=== PATIENT | female | born 2000 | race Caucasian/White ===

== ENCOUNTER 2018-03-23 12:46 | Emergency (ER) | payer MEDICAID, SELFPAY ==
[2018-03-23 12:48] VITALS: BP 115/80; PULSE 92; RESP 15; TEMP 36.4; O2SAT 95; BMI 27.6
[2018-03-23] MEDS: Acetaminophen 500 MG Tablet 1000 MG PO (14:18)
[2018-03-23 14:30] LABS: Red Blood Cells-Urine 0 SEEN /hpf (0-5)
[2018-03-23 14:31] LABS: Color, Urine Yellow (Yellow); Glucose, Dipstick Normal (Normal); Ketone-Dipstick 50 mg/dl (Negative); Leukocyte Esterase-Dipstick 500 /ul (Negative); Nitrite-Dipstick Negative (Negative); Occult Blood-Urine Negative /ul (Negative); Protein-Dipstick Negative (Negative); Urine Bilirubin Dipstick Negative (Negative); Urine Clarity Sl. Cloudy (Clear); Urine Urobilinogen Normal (Normal)
[2018-03-23 14:37] LABS: Bacteria 1+ /hpf (None Seen); Mucous, Urine 1+ /hpf (<or=2+); Squamous Epithelial Cells - UA 0-5 SEEN /hpf (5-10); White Blood Cells 0-5 SEEN /hpf (0-5)
--- NOTE | 2018-03-23 15:11 | ED.DCSUM_ITS ---
- ER Visit Summary Date of Service: 03/23/18 Chief Complaint: Back pain History of Present Illness: The patient is a [address] Macedo at the [facility]. She is a at 30 weeks and 60 weeks of . She reports she has back pain that began yesterday. It is a sharp, aching pain that is 5 out of 10 worsened through 10 currently. Is worsened by movement or standing. Is relieved by sitting or laying down. She reports that both of her legs ache. States that this is worse in her thighs and her feet. She reports that if she stands for long period of time her legs go numb. She denies any numbness in her groin. No problems with her bowels or her bladder. No recent trauma. No fall, MVA, or change in activity. Patient reports she has had normal movement. She denies any vaginal discharge. She denies any dysuria. She denies contractions. No fever, chills, or abdominal pain. Physical Examination: Vitals: Stable. Afebrile. General: A&O x 3. NAD. Cardiovascular exam: Regular rate and rhythm, no murmur, rub or gallop. Respiratory exam: Clear to auscultation bilaterally. No wheezes or stridor. Abdominal exam: Soft, nontender, nondistended, normal bowel sounds. No peritoneal signs. Gravid uterus. Back: No vertebral tenderness. Negative straight leg bilaterally. 5/5 DF, PF, EHL bilaterally. Normal sensation to light touch throughout. Extremity: No clubbing, cyanosis, or edema. Test Results: UA shows leukocytes and 1+ bacteria. Emergency Department Course and Treatment: Patient had heart tones of 130. She was treated with Tylenol and has had significant relief and is resting comfortably. Treatment Plan: Patient was discussed with Elza Bridges at the [facility]. She does not want her placed on antibiotics at this time. Her urine was sent for culture. She will be discharged on Tylenol. Instructed to follow- up in 1-2 days not improving. If she is improving keep her appointment next week as previously scheduled. Return to the emergency department for any worsening symptoms. Disposition: To home in improved and stable condition. Impression: 1. Low back pain. 2. Third trimester . This note was generated with onefortyation software. It may contain incorrect words, spelling, and punctuation that were not noted in review of the chart prior to signing ED Disposition - Plan for ED Patient: Disposition: Home or Assisted Living Chief Complaint: Back Instructions: ED Sprain Strain Lumbar Referrals: Evelia Macedo CNM [Certified Nurse Solutions Delivery Consultant] - 1-2 Days if not improving
== END 2018-03-23 15:52 | disposition home or self-care (01) ==
LOC: ED 14:10
PROVIDERS: Emergency Provider Emergency Medicine
DX: O26.893 Other specified pregnancy related conditions, third trimester (principal); M54.5 Low back pain; M79.604 Pain in right leg; M79.605 Pain in left leg; Z3A.30 30 weeks gestation of pregnancy
CPT/HCPCS: 81001; 87086; 87088; 99283

== ENCOUNTER 2018-06-02 18:51 | Inpatient (IN) | payer MEDICAID, SELFPAY ==
[2018-06-02 18:54] VITALS: BMI 31.4
[2018-06-02] MEDS: Lactated Ringers 1,000 ML 50 ML IV (19:50)
[2018-06-02] MEDS: 0.9% Normal Saline 100 ML IV.SOLN. INTRA-UTER (20:10)
--- NOTE | 2018-06-02 20:14 | PCM.HP.OB ---
History Date of Admission: 06/02/18 Final ALBERTO: 05/26/18 Final ALBERTO Source: US <20 weeks Gestational age: 41 Weeks and 0 Days History of this : This is a 18 year-old, G 1/0 at 41 weeks gestational age here for IOL due to post EDC. pt denies VB, Cramping, LOF. Allergies No Known Allergies Allergy (Verified 06/02/18 19:22) Home Medications: Home Medications No122/Iron/Folic Acid [ Multi Tablet] 1 each PO DAILY 03/23/18 Smoking Status: Never smoker Alcohol: None Number of Fetus(es): 2 Heart Tracin mod lauri, + accels no decels. Cat 1 TOCO Analysis: irregular History Past Pregnancies: Past Pregnancies Delivery Date Name GA/Weeks Outcome Route Weight Gender Labor Length Anesthesia Delivery Location Provider FOB Labs: A+, GBS neg, HIV neg, HEP B neg, Rub imm, Syphilis negative Expected Infant Delivery Method: Spontaneous Vaginal Review of Systems Cardiovascular: Denies: Chest Pain Gastrointestinal: Denies: Abdominal Pain Physical Exam General: Alert, Oriented x3 Abdomen: Soft, Non Tender, Gravid Neurological: Cranial nerves II-XII grossly intact TRAFFIC AGENT: Normal external genitalia Estimated gestational size: Appropriate for gestational size Presentation: Cephalic Cervix Dilation (cm): 1.5 Station: -2 Effacement (%): 70 Assessment/Plan This is a 18 year-old, G 2/ @ 41 weeks gestational age here for IOL due to post edc 1) cytotec, [facility] 2) Epidural if requested 3) Monitor fhr/toco 4) Anticipate
[2018-06-02] MEDS: miSOPROStol 25 MCG TABLET PO (20:15)
[2018-06-02 20:19] LABS: Hematocrit 36.6 % (37-47); Hemoglobin 11.7 g/dl (12.0-15.0); Mean Corpuscular Hgb 28.1 pg (27.0-32.0); Mean Corpuscular Volume 87.8 fL (81-99); Mean Platelet Vol. 11.8 fl (6.2-12.0); Platelet Count 200 K/mm3 (150-450); RBC Distribution Width CV 13.6 % (11.6-14.6); Red Blood Count 4.17 M/mm3 (4.2-5.4); Scan Indicated on CBC? Y/N NO; White Blood Count 13.7 K/mm3 (4.4-11.0)
--- NOTE | 2018-06-02 20:19 | HP.PCM_ITS ---
History Date of Admission: 06/02/18 Final ALBERTO: 05/26/18 Final ALBERTO Source: US <20 weeks Gestational age: 41 Weeks and 0 Days History of this : This is a 18 year-old, G 1/0 at 41 weeks gestational age here for IOL due to post EDC. pt denies VB, Cramping, LOF. Allergies No Known Allergies Allergy (Verified 06/02/18 19:22) Home Medications: Home Medications No122/Iron/Folic Acid [ Multi Tablet] 1 each PO DAILY 03/23/18 Smoking Status: Never smoker Alcohol: None Number of Fetus(es): 2 Heart Tracin mod lauri, + accels no decels. Cat 1 TOCO Analysis: irregular History Past Pregnancies: Past Pregnancies Delivery Date Name GA/Weeks Outcome Route Weight Gender Labor Length Anesthesia Delivery Location Provider FOB Labs: A+, GBS neg, HIV neg, HEP B neg, Rub imm, Syphilis negative Expected Infant Delivery Method: Spontaneous Vaginal Review of Systems Cardiovascular: Denies: Chest Pain Gastrointestinal: Denies: Abdominal Pain Physical Exam General: Alert, Oriented x3 Abdomen: Soft, Non Tender, Gravid Neurological: Cranial nerves II-XII grossly intact HAND PACKER/PACKAGER: Normal external genitalia Estimated gestational size: Appropriate for gestational size Presentation: Cephalic Cervix Dilation (cm): 1.5 Station: -2 Effacement (%): 70 Assessment/Plan This is a 18 year-old, G 2/ @ 41 weeks gestational age here for IOL due to post edc 1) cytotec, Garcia 2) Epidural if requested 3) Monitor fhr/toco 4) Anticipate
[2018-06-03] MEDS: miSOPROStol 25 MCG TABLET PO ×2 (00:53→05:14)
--- NOTE | 2018-06-03 08:27 | PCM.PN.OB ---
Subjective: Doing well sitting on peanut ball in room. Feeling contractions but not too uncomfortable. Family at bedside. Objective: FHR 125, moderated variability, accels, no decels, Category 1 TOCO: every 2-3 minutes, mild to palpation, lasting 30-60 seconds Cervix:4/75/-2 per nursing exam at 0445 - Physical Exam Psych/Mental Status: Normal Affect, Appropriate Weight: 183 lb Body Mass Index (BMI) 31.4 Laboratory Tests Past 24 Hrs 06/02/18 06/02/18 19:45 19:45 WBC 13.7 H RBC 4.17 L Hgb 11.7 L Hct 36.6 L MCV 87.8 MCH 28.1 MCHC 32.0 RDW 13.6 RDW Differential 43.0 Plt Count 200 MPV 11.8 Blood Type A POSITIVE Antibody Screen NEGATIVE Medical Necessity - Tobacco Use Smoking Status: Never smoker Assessment/Plan A: postdates IOL Category 1 FHT P: 1) Continue with IOL, will start Pitocin at 0900. 2) eat breakfast this am and shower 3) Continue with current positional changes and up out of bed. May have epidural if requested. 4) collaborating physician at this time and updated on patient status.
[2018-06-03] MEDS: 0.9% Saline Lock 10 ML Syringe IV ×2 (08:58→19:50)
[2018-06-03] MEDS: Lactated Ringers 1,000 ML 50 ML IV ×3 (08:58→15:05)
[2018-06-03] MEDS: Oxytocin 30 units/NS 500 ml 30 UNITS/500 ML IV.SOLN IV (09:12)
[2018-06-03] MEDS: Nalbuphine 10 MG/ML Ampul IV (10:20)
[2018-06-03] MEDS: fentaNYL-bupivacaine (epidural) 100 ML BAG EPIDURAL ×2 (12:00→16:38)
--- NOTE | 2018-06-03 12:17 | PCM.PN.OB ---
Subjective: Comfortable with epidural. Family at bedside. Objective: FHT: 120, moderate variability, accels, Category 1 TOCO: every 2-3 minutes, lasting 50-60 seconds, palpate moderate Cervix: 5cm/80%/-2, midline. IBOW - Physical Exam Weight: 183 lb Body Mass Index (BMI) 31.4 Intake and Output for Last 24 Hours 06/01/18 06/02/18 06/03/18 23:59 23:59 23:59 Intake Total 1350 / 1350 Output Total 650 / 650 Balance 700 / 700 Laboratory Tests Past 24 Hrs 06/02/18 06/02/18 19:45 19:45 WBC 13.7 H RBC 4.17 L Hgb 11.7 L Hct 36.6 L MCV 87.8 MCH 28.1 MCHC 32.0 RDW 13.6 RDW Differential 43.0 Plt Count 200 MPV 11.8 Blood Type A POSITIVE Antibody Screen NEGATIVE Medical Necessity - Tobacco Use Smoking Status: Never smoker Assessment/Plan A:Postdates IOL, progressing Category 1 FHT P: 1) Labor progressing, Pitocin at 8mu's 2) Epidural for pain management. Positional changes. 3) Continue with IOL.
--- NOTE | 2018-06-03 17:45 | CASEMGMT ---
Social Work Labor and Delivery Unit Responded to OB-ERT. Patient/mother of baby (MOB) taken to surgical room for possible Caesarian section. Present in room was father of baby (FOB) Fletcher and MOB's mother. FOB accompanied to section room by nursing staff. This telegraphic typewriter installer provided emotional support to MOB's mother, answered questions and provided updates as able. FOB's mother and sister also in waiting room. MOB's mother tearful and anxious during time that MOB back in section room, voicing how hard it is not to be with MOB. Decision made to have MOB back to labor room, so MOB's mom back to MOB's room. -CARLI Nails, LICENSED OCCUPATIONAL THERAPY ASSISTANT
[2018-06-03] MEDS: Oxytocin 30 units/NS 500 ml 30 UNITS/500 ML IV.SOLN 334 UNITS IV (18:00)
[2018-06-03] MEDS: Oxytocin 30 units/NS 500 ml 30 UNITS/500 ML IV.SOLN 167 UNITS IV (18:30)
--- NOTE | 2018-06-03 19:15 | PCM.PN.OB ---
Subjective: Progressed to complete, comfortable with epidural. Meconium stained fluid, pediatiricna and respiratory present for delivery. of viable male infant over 2nd degree perineal laceration. APGARS 8,9. Infant delivered and placed on maternal abdomen, stimulated and strong cry. Weight pending. Pitocin started for active 3rd stage management. Placenta delivered with maternal effort via mitchell, intact 3 vessel cord. Perineum inspected and revealed 2nd degree perineal laceration repaired under epidural analgesia and 3.0 vicryl. Periurethral laceration repaired with 3.0 vicryl. Fundus firm, hemostasis achieved. EBL 350ml. Mom and baby stable, family bonding well. Planning to breastfeed. notified of delivery. - Physical Exam Weight: 183 lb Body Mass Index (BMI) 31.4 Intake and Output for Last 24 Hours 06/01/18 06/02/18 06/03/18 23:59 23:59 23:59 Intake Total 3825 / 3825 Output Total 1050 / 1050 Balance 2775 / 2775 Laboratory Tests Past 24 Hrs 06/02/18 06/02/18 19:45 19:45 WBC 13.7 H RBC 4.17 L Hgb 11.7 L Hct 36.6 L MCV 87.8 MCH 28.1 MCHC 32.0 RDW 13.6 RDW Differential 43.0 Plt Count 200 MPV 11.8 Blood Type A POSITIVE Antibody Screen NEGATIVE Medical Necessity - Tobacco Use Smoking Status: Never smoker
--- NOTE | 2018-06-03 19:22 | PN.OBGYN_ITS ---
Subjective: Progressed to complete, comfortable with epidural. Meconium stained fluid, pediatiricna and respiratory present for delivery. of viable male infant over 2nd degree perineal laceration. APGARS 8,9. Infant delivered and placed on maternal abdomen, stimulated and strong cry. Weight pending. Pitocin started for active 3rd stage management. Placenta delivered with maternal effort via mitchell, intact 3 vessel cord. Perineum inspected and revealed 2nd degree perineal laceration repaired under epidural analgesia and 3.0 vicryl. Periurethral lacer ation repaired with 3.0 vicryl. Fundus firm, hemostasis achieved. EBL 350ml. Mom and baby stable, family bonding well. Planning to breastfeed. notified of delivery. - Physical Exam Weight: 183 lb Body Mass Index (BMI) 31.4 Intake and Output for Last 24 Hours 06/01/18 06/02/18 06/03/18 23:59 23:59 23:59 Intake Total 3825 / 3825 Output Total 1050 / 1050 Balance 2775 / 2775 Laboratory Tests Past 24 Hrs 06/02/18 06/02/18 19:45 19:45 WBC 13.7 H RBC 4.17 L Hgb 11.7 L Hct 36.6 L MCV 87.8 MCH 28.1 MCHC 32.0 RDW 13.6 RDW Differential 43.0 Plt Count 200 MPV 11.8 Blood Type A POSITIVE Antibody Screen NEGATIVE Medical Necessity - Tobacco Use Smoking Status: Never smoker
--- NOTE | 2018-06-03 19:28 | PCM.OB.VAG ---
- Problem List (1) (normal spontaneous vaginal delivery) Status: Acute (2) Second degree perineal laceration during delivery Status: Acute Vaginal Delivery Maternal Presentation: Medically Indicated Induction Method of Induction: Pitocin, Garcia Bulb, Cytotec Medical Reason for Induction: - - Postdates at 41 weeks Amniotic Membrane Rupture Type: Spontaneous Amniotic Fluid Description: Lightly stained meconium Final ALBERTO: 05/26/18 Gestational age: 41 Weeks and 1 Days Date of Procedure: 06/03/18 Pre-Operative Diagnosis: Induction of labor Post-Operative Diagnosis: Surgery/ Procedure Performed: Spontaneous Vaginal Delivery Type of Anesthesia: Epidural Description of Procedure: degree perineal laceration. APGARS 8,9. Infant delivered and placed on maternal abdomen, stimulated and strong cry. Weight pending. Pitocin started for active 3rd stage management. Placenta delivered with maternal effort via mitchell, intact 3 vessel cord. Perineum inspected and revealed 2nd degree perineal laceration repaired under epidural analgesia and 3.0 vicryl. Periurethral laceration repaired with 3.0 vicryl. Fundus firm, hemostasis achieved. EBL 350ml. Mom and baby stable, family bonding well. Planning to breastfeed. notified of delivery. Presentation: Vertex Placental Delivery Description: Spontaneous Placenta Disposition: [facility] Cord Vessel Description: 3 Vessels Cord Entanglement: None Estimated Blood Loss: 350ml Infant A gender: Male (1 minute): 8 (5 minute): 9 Episiotomy Description: None Laceration: Periurethral Extnsion/lac, Perineal Extension/lac, 2nd degree Medications given after delivery: IV Pitocin
[2018-06-03] MEDS: Acetaminophen 500 MG Tablet 1000 MG PO (20:48)
[2018-06-04 00:10] VITALS: BP 108/50; PULSE 74; RESP 17; TEMP 37.1
[2018-06-04 03:20] VITALS: BP 104/50; PULSE 72; RESP 16; TEMP 36.9
[2018-06-04] MEDS: Ibuprofen 600 MG Tablet PO ×3 (03:45→18:28)
[2018-06-04 08:30] VITALS: BP 116/52; PULSE 78; RESP 18; TEMP 36.6
[2018-06-04] MEDS: Senna/Docusate Sodium 1 Tablet PO (09:53)
--- NOTE | 2018-06-04 10:31 | PCM.PN.OB ---
Patient Problems: Active and Suspected Problems (normal spontaneous vaginal delivery) (Acute) Second degree perineal laceration during delivery (Acute) Subjective: No complaints - Physical Exam General: Alert, Oriented x3 Abdomen: Soft, Non Tender, Non-Distended - ff mid & below umb Extremities: No Calf Tenderness Vital Signs Temp Pulse Resp BP 97.9 F 78 18 116/52 L 06/04/18 08:30 06/04/18 08:30 06/04/18 08:30 06/04/18 08:30 Oxygen Delivery Method Room Air Weight: 183 lb Body Mass Index (BMI) 31.4 Intake and Output for Last 24 Hours 06/02/18 06/03/18 06/04/18 23:59 23:59 23:59 Intake Total 3825 / 3825 Output Total 1050 / 1050 1160 / 1160 Balance 2775 / 2775 -1160 / -1160 Medical Necessity - Tobacco Use Smoking Status: Never smoker Assessment/Plan All Active Problems (normal spontaneous vaginal delivery) (Acute) Second degree perineal laceration during delivery (Acute) PPD#1 Routine care
[2018-06-04 13:00] VITALS: BP 117/53; PULSE 84; RESP 18; TEMP 37
[2018-06-04 16:00] VITALS: BP 107/50; PULSE 104; RESP 18; TEMP 37
[2018-06-04 20:15] VITALS: BP 122/54; PULSE 81; RESP 16; TEMP 37.3; O2SAT 96
[2018-06-05 02:15] VITALS: BP 100/40; PULSE 78; RESP 16; TEMP 37.4; O2SAT 98
--- NOTE | 2018-06-05 08:47 | DCINST_ITS ---
Discharge Diet: No Restrictions Discharge Activity: Return to Normal Activity, May not drive while taking narcotic pain medications., May Shower May resume sexual activity in: 4-6 weeks Additional Activity Instructions:: Nothing in the vagina for 4-6 weeks. You may return to work/school in 6 weeks. Call your doctor if your incision/area has: Continuous Slow Oozing, Sudden Increased Bleeding, Increased Pain/ Swelling, Increased Redness, Foul Smelling Discharge Call your doctor if you observe: Fever of 101 or Higher, Inability to urinate, Inability to have a bowel movement, Using more than one pad per hour Additional Instructions: If you experience any of the following, contact your healthcare provider. * Bleeding that soaks a pad every hour for 2 hours * Fever 100.4 or higher * Unrelieved incision or abdominal pain * Swelling, redness, discharge or bleeding from your incision or episiotomy site * Your incision begins to separate * Problems urinating (including inability to urinate or burning while urinating). * Visual changes * Severe headache * Flu-like symptoms * Pain or redness in one of both of your breasts * Pain, warmth, tenderness or swelling in your legs, especially the calf area * Frequent nausea and vomiting * Symptoms of depression or anxiety If you experience any of the following, call 911 or go to the nearest Emergency Room. * Chest pain * Problems breathing * Seizure activity * Partial or complete paralysis of a body part, slurred speech, weakness or drooping of the face, or a sudden inability to walk or hold your balance Allergies/Adverse Reactions: Allergies No Known Allergies Allergy (Verified 06/02/18 19:22) Medications to take at Discharge No122/Iron/Folic Acid [ Multi Tablet] 1 each PO DAILY 03/23/18 Please Follow Up With: Evelia Macedo CNM When: Call to make an appointment with your provider in 2 and 6 weeks. If you had elevated Blood Pressure or 4th degree laceration you will need to be seen in 1 week. Primary Care Physician: Care Physician,No Primary [Primary Care Provider] - Test Results: Test results from this visit will be discussed in further detail at your follow- up appointment, if applicable. Proposed Discharge Date: 06/05/18
--- NOTE | 2018-06-05 08:47 | PCM.PN.OB ---
Patient Problems: Active and Suspected Problems (normal spontaneous vaginal delivery) (Acute) Second degree perineal laceration during delivery (Acute) Subjective: Patient laying in bed denying issues at this time. Notes occasional leaking of urine when she bladder is overfull and when she does not go to the bathroom in a timely fashion. Denies WADE, scotoma or dizziness. Denies any issues with urination or ambulation. Patient desires discharge to home today. Objective: VSS, Afebrile Nipples without cracks or blisters, breasts filling Abdomen NT x 4 quadrants, FF midline 2FB below umbilicus +2/4 reflexes in LE, negative calf tenderness to palpation BL, no edema noted scant rubra lochia, perineum well-approximated - Physical Exam General: Alert, Oriented x3, Cooperative HEENT: Atraumatic, Normocephalic Lungs: Normal air movement Cardiovascular: Regular rate, Regular Rhythm, No murmurs Abdomen: Soft, Non Tender Extremities: No edema, Capillary Refill Less than 3 Seconds Skin: No rashes, No breakdown Musculoskeletal: No Tenderness to Palpation of Joints or Extremities Neurological: Cranial nerves II-XII grossly intact Psych/Mental Status: Normal Affect, Appropriate Vital Signs Temp Pulse Resp BP Pulse Ox 99.3 F H 78 16 100/40 L 98 06/05/18 02:15 06/05/18 02:15 06/05/18 02:15 06/05/18 02:15 06/05/18 02:15 Oxygen Delivery Method Room Air Weight: 183 lb Body Mass Index (BMI) 31.4 Intake and Output for Last 24 Hours 06/03/18 06/04/18 06/05/18 23:59 23:59 23:59 Intake Total 3825 / 3825 Output Total 1050 / 1050 1160 / 1160 Balance 2775 / 2775 -1160 / -1160 Medical Necessity - Tobacco Use Smoking Status: Never smoker Assessment/Plan All Active Problems (normal spontaneous vaginal delivery) (Acute) Second degree perineal laceration during delivery (Acute) 18 y/o now, s/p , PPD #2, Normal PP Course P: 1) Discharge patient to home pending discharge 2) Anticipatory discharge teaching done 3) RTC in 2 and 6 weeks for PP visit at [facility] Elza HOWARD
[2018-06-05 10:00] VITALS: BP 108/60; PULSE 70; RESP 18; TEMP 37.3
[2018-06-05 13:00] VITALS: BP 136/48; PULSE 100; RESP 16; TEMP 36.3
--- NOTE | 2018-06-05 13:00 | CASEMGMT ---
Social Work Brief Assessment - Labor and Delivery Unit Refer documentation below for further details. Date of Referral/Notification: 06-03-18 Referred By: Social Work identification Reason for Referral: first time parents, assess for resource needs. Date of Intervention: 06-05-18 Time of Intervention: 1300 Informant: Medical record and mother of baby (MOB) Saira Evans History: MOB is a 18-year-old single female, G1, P0 to 1 after delivering baby boy Herb Hernandez this admission. Baby born weighing 8 pounds 13 ounces, ?s 8 and 9 at 1 and 5 minutes of life. Father of baby (FOB) is Azael Hernandez, age 19, involved with MOB for the last 2 years. 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 MOB reports to have needed baby supplies for Herb, including car seat, bassinet, clothing, diapers, wipes, bottles, and can get formula. MOB reports to have transportation. MOB reports to have good support from FOB, MOB?s mother, and FOB?s family. MOB denies any mental health history herself. MOB?s father with history of alcohol abuse, a grandmother with possible bipolar disorder, and the MOB?s mother had depression, anxiety, and depression. MOB denies any substance use or abuse history and is a nonsmoker of tobacco. MOB had negative drug screen on 10-20-17 when starting care around 7 weeks gestation. Assessment: Initially met with MOB and FOB together and then alone with MOB. Privately MOB denies any form of abuse in relationship with FOB, reports to feel safe and that FOB is supportive. FOB was holding the baby during time in the room, appearing supportive to MOB and attentive to baby. MOB attentive to baby when FOB left. MOB pleasant, talkative, held good eye contact, mood and affect appropriate. MOB reports to feel happy, reports to feel connected to the baby, and reports agreement with a [facility] referral. MOB denies any needs for home going, and reports will have help from FOB and then from MOB?s mother and even FOB?s mother if needed. MOB reports FOB?s family is larger and very supportive and loving, which is a new experience for MOB who has a small family. MOB initially do not publish status at the hospital as has had some drama with MOB?s grandmother, who MOB describes as not a nice person and who possibly has bipolar due to many mood swings and just talking meanly to others. Plan: MOB and baby to home with support from JOSÉ MANUEL, [facility] resource packet given, depression packet given, and MOB verbally agrees to a [facility] referral. No further needs requested or indicated. -REINALDO Nails, PLASTIC CABLEMAKING MACHINE OPERATOR
--- NOTE | 2018-06-15 12:17 | NURSING ---
[id number] Follow up phone call made and left a VM due to not answering. Marianna
--- NOTE | 2018-06-16 10:21 | CASEMGMT ---
Addendum entered and electronically signed by Nuzhat Jiménez 06/16/18 16:39: Reviewed and approve SALESPERSON [employer] student sports management internship documentation below. -CARLI Nails, GOLF BALL WINDER Original Note: Social Work Labor and Delivery [facility] referral submitted for parents and per their verbal consent through the secured [facility] website. No other services indicated or needed at this time. -Margarita Ash, SALESPERSON NEW CARS Student Floating Operator.
== END 2018-06-05 13:55 | disposition home or self-care (01) | DRG 560 ==
PROVIDERS: Obstetrics & Gynecology; Admitting Provider Obstetrics & Gynecology; Referring Provider Obstetrics & Gynecology; Visit Provider Obstetrics & Gynecology
DX: O48.0 Post-term pregnancy (principal); Z3A.41 41 weeks gestation of pregnancy; Z37.0 Single live birth; O70.1 Second degree perineal laceration during delivery; O77.0 Labor and delivery complicated by meconium in amniotic fluid
CPT/HCPCS: 59025; 59050; 85027; 86850; 86900; 99218; J7120; A4216; G0378

== ENCOUNTER 2019-02-02 20:19 | Emergency (ER) | payer MEDICAID, SELFPAY ==
[2019-02-02 20:19] VITALS: BP 117/65; PULSE 54; RESP 16; TEMP 36.6; O2SAT 100; BMI 24.9
--- NOTE | 2019-02-02 20:42 | EKG12_ITS ---
Test Reason : BACK PAIN Blood Pressure : / mmHG Vent. Rate : 050 BPM Atrial Rate : 050 BPM P-R Int : 146 ms QRS Dur : 086 ms QT Int : 404 ms P-R-T Axes : 061 067 049 degrees QTc Int : 368 ms Sinus bradycardia with sinus arrhythmia Otherwise normal ECG Confirmed by ERON STEPHENS, RADHA ([id number]), editor managing newspaper ALMITA WU ([id number]) on 02/05/2019 1:50:50 PM Referred By: IRAIDA Confirmed By:AASHISH LITTLEJOHN MD
--- NOTE | 2019-02-02 20:42 | CT_ITS ---
STUDY: CT BRAIN WITHOUT CONTRAST REASON FOR EXAM: Female, 18 years old. BILATERAL EXTREMITY NUMBNESS AND WEAKNESS RADIATION DOSAGE (If Supplied By Facility): CTDIvol = ( 44.99 ) mGy, DLP = ( 745.49 ) mGycm TECHNIQUE: Transaxial CT imaging of the brain was performed without administration of intravenous contrast material. Individualized dose optimization techniques were used for this CT. COMPARISON: No relevant priors. FINDINGS: Normal soft tissue structures. Normal calvarium. Normal size ventricles and extra-axial spaces for the patient's age. Normal white matter tracts of the cerebral hemispheres. Normal basal ganglia and thalami. Normal brainstem. Normal cerebellum. There is no intracranial hemorrhage. There are no findings of an acute ischemic infarction. Normal visualized paranasal sinuses. CT/Brain/Head without Contrast IMPRESSION: Normal unenhanced CT scan of the brain. Electronically Signed: Felix Carolina MD at 21:23 EDT , Service support ,
--- NOTE | 2019-02-02 20:42 | RAD_ITS ---
STUDY: X-RAY CHEST REASON FOR EXAM: Female, 18 years old. Neck and chest pain. TECHNIQUE: Frontal and lateral views of the chest. COMPARISON: None. FINDINGS: The lungs are clear and expanded. There is no demonstrated pleural abnormality. Normal size heart. Normal mediastinum and abril. Normal visualized pulmonary arteries. Normal visualized aortic arch and descending thoracic aorta. Normal visualized thoracic spine. Normal visualized ribs, clavicles, and shoulders. There is no demonstrated abnormality of the visualized soft tissue structures of the upper abdomen. RAD/Chest PA and Lateral IMPRESSION: Normal x-ray examination of the chest. Electronically Signed: Felix Carolina MD at 21:24 EDT , Service support ,
--- NOTE | 2019-02-02 20:43 | RAD_ITS ---
STUDY: X-RAY - CERVICAL SPINE REASON FOR EXAM: Female, 18 years old. Neck and chest pain. TECHNIQUE: 3 view(s) of the cervical spine were obtained. COMPARISON: None FINDINGS: Normal anterior atlantoaxial articulation. Normal odontoid process. Normal cervical lordosis. Normal vertebral bodies and endplates. Normal disc space heights. The soft tissue structures are unremarkable. There is no demonstrated fracture of the cervical spine. RAD/Cerv Spine 2 or 3 Views IMPRESSION: Normal x-ray examination of the visualized cervical spine. Electronically Signed: Felix Carolina MD at 21:25 EDT , Service support ,
--- NOTE | 2019-02-02 20:43 | ED.DCSUM_ITS ---
History of Present Illness Chief Complaint: Back Informant: Patient Onset: Hours - several Context: Sudden Onset - while standing at work Timing: Continuous Quality: pain and numb on inside Location: throughout all aspects of both lower extremities Current Severity: Mild Maximum Severity: Severe Worsened by: standing Relieved by: lying at rest Associated Symptoms: pain from neck migrates down to low back Narrative: Patient states couple hours ago at work she started having pain in her low back radiating down her legs in their entirety. States actually the pain starts in her neck and then works its way down. She has been having episodes similar to this for around 2 years. She has had no tests done. She has no doctor. She went to urgent care once, and she states that they told her nothing was wrong and so she left. She has frequently had racing heartbeat or chest discomfort, she is having sharp aching chest discomfort now, with these episodes. A week or 2 ago she had one where she felt like she was going to pass out but did not lose consciousness. Tonight she had a few minutes of left arm numbness that is now gone, and that is new. She denies any injury. She denies any motions or postural/position changes that she can think of that has triggered any of this, it all seems very random. She denies any history of drug use. Past Medical History - Allergies and Home Meds Allergies/Adverse Reactions: Allergies No Known Allergies Allergy (Verified 06/18/18 13:27) Primary Care Physician: Care Physician,No Primary [Primary Care Provider] - Past Medical History: None Smoking Status: Never smoker Drugs: None Review of Systems General: Denies: Chills, Fever, Sweats Eyes: Denies: Visual changes - bilaterally, Diplopia ENT: Denies: Rhinorrhea, Sore throat Cardiovascular: Reports: Chest pain, Palpitations, Heart racing Respiratory: Denies: Dyspnea, Cough, Dyspnea on exertion Gastrointestinal: Denies: Abdominal pain, Nausea, Vomiting, Diarrhea, Melena, Hematochezia Genitourinary: Denies: Dysuria, Hematuria, Frequency Musculoskeletal: Reports: Neck pain, Back pain, Extremity Pain. Denies: Swelling Skin: Denies: Rash, Wounds Neurological: Reports: Weakness, Numbness. Denies: Headache Endocrine: Denies: Polyuria, Polydipsia, Heat intolerance, Cold intolerance Physical Exam Vital Signs/Narrative: Vital Signs Temp Pulse Resp BP Pulse Ox 02/02/19 20:19 97.9 F 54 L 16 117/65 100 Inital Vital Signs reviewed: Yes General: Well nourished, Well developed, No Acute Distress Head: Normocephalic, Atraumatic Eyes: Perrl, EOMI ENT: Moist mucous membranes, No rhinorrhea Neck: Supple, Nontender Cardiovascular: Regular rate, Regular rhythm, No murmurs Respiratory: No distress, CTA bilaterally, Chest nontender Abdomen: Soft, Nontender, Nondistended, Normal bowel sounds Back: Nontender, Normal Inspection Extremities: Nontender, No edema. Negative for: Calf Tenderness Skin: Normal color, No rash, No Trauma Neurological: Alert, Oriented x3, Cranial nerves II-XII grossly intact, Normal Strength, Normal Sensation, Normal DTR - no clonus. downgoing toes bilat. Psychological: - - frustrated. I'm not even sure why I came here. They always tell me nothing's wrong. Diagnostic/Tx/Re-eval Impressions Brain CT 02/02/19 20:42 IMPRESSION: Normal unenhanced CT scan of the brain. Electronically Signed: Felix Carolina MD at 21:23 EDT , Service support , Chest X-Ray 02/02/19 20:42 IMPRESSION: Normal x-ray examination of the chest. Electronically Signed: Felix Carolina MD at 21:24 EDT , Service support , Cervical Spine X-Ray 02/02/19 20:43 IMPRESSION: Normal x-ray examination of the visualized cervical spine. Electronically Signed: Felix Carolina MD at 21:25 EDT , Service support , 02/02/19 20:42 Brain/Head without Contrast [CT] Stat Chest PA and Lateral [RAD] Stat 02/02/19 20:43 Cerv Spine 2 or 3 Views [RAD] Stat Laboratory Results 02/02/19 02/02/19 21:00 21:00 WBC 7.7 RBC 4.32 Hgb 12.2 Hct 37.6 MCV 87.0 MCH 28.2 MCHC 32.4 RDW Std Deviation 37.6 RDW Coeff of Lisseth 11.8 Plt Count 216 MPV 11.4 Immature Gran % (Auto) 0.100 Neut % (Auto) 63.2 Lymph % (Auto) 29.4 [place] % (Auto) 5.8 Eos % (Auto) 1.0 Baso % (Auto) 0.5 Absolute Neuts (auto) 4.8 Absolute Lymphs (auto) 2.25 Nucleated RBC % 0 Differential Comment SCANNED Sodium 138 Potassium 3.9 Chloride 108 H Carbon Dioxide 24.0 Anion Gap 6 BUN 10 Creatinine 0.86 Estim Creat Clear Calc 90.11 Est GFR (MDRD) Af Amer 108 Est GFR (MDRD) Non-Af 89 BUN/Creatinine Ratio 11.7 Glucose 83 Calcium 8.3 L Troponin I < 0.015 - Rhythm Strip Rhythm Strip: Sinus Rhythm Rate: 50 Ectopy: None - EKG Initial EKG Interpretation: Sinus Rhythm, No Acute Injury Pattern Prior: Unchanged - Medical Decision Making Labs, CT of the head, neck x-rays are unremarkable and do not provide clues here. Differential includes B12 deficiency mimicking neurologic symptoms although she is not anemic making that less likely. MS is in the differential, as is syringomyelia and other spinal cord disorders. Given that she has a normal neurologic exam now, and the symptoms are intermittent and long-standing, I feel she is safe to follow-up as an outpatient which I advised that she do shortly. She has never lost consciousness from this, I do not think she needs to be monitored in the hospital at this time. Discussed this with her at length, she is comfortable with this plan and given appropriate referral. Refer to the next doctor on the unassigned list, Dr. Juarez. ED Disposition - Plan for ED Patient: Disposition: Home or Assisted Living Diagnosis: Intermittent low back pain, Paresthesias Instructions: Paraesthesias Referrals: Albaro Juarez, [STAFF PHYSICIAN] - As soon as possible (call for appt)
--- NOTE | 2019-02-02 20:46 | ED.RN ---
NO OLD EKGS IN MUSE
[2019-02-02 21:03] LABS: Absolute Lymphocyte Count 2.25 X10^3/uL (0.83-4.51); Absolute Neutrophil Count 4.8 X10^3/uL (2.0-7.7); Basophil# 0.04 X10^3/uL; Basophil% 0.5 % (0-1); Eosinophil# 0.08 X10^3/uL; Hematocrit 37.6 % (37-47); Hemoglobin 12.2 g/dL (12.0-15.0); Lymphocyte # 2.25 X10^3/ul (4.0); Lymphocyte % 29.4 % (19-41); Mean Corp Hgb Conc 32.4 g/dL (32-36); Mean Corpuscular Hgb 28.2 pg (27.0-32.0); Mean Platelet Vol. 11.4 fl (6.2-12.0); Monocyte# 0.44 X10^3/uL; Monocyte% 5.8 % (0-10); NRBC Flagged by Analyzer 0 % (0-5); Neutrophil # 4.83 X10^3/uL (2.7-7.7); Neutrophil % 63.2 % (47-70); POSITIVE MORPHOLOGY YES; Platelet Count 216 K/mm3 (150-450); RBC Distribution Width CV 11.8 % (11.6-14.6); RBC Distribution Width SD 37.6 fl (35.1-43.9); Red Blood Count 4.32 M/mm3 (4.2-5.4); White Blood Count 7.7 K/mm3 (4.4-11.0)
[2019-02-02 21:12] LABS: Differential Indicated SCAN CRITERIA MET
[2019-02-02 21:22] LABS: Anion Gap 6 (5-15); BUN 10 mg/dL (7-18); BUN/Creat Ratio 11.7 RATIO (10-20); Calcium,Total 8.3 mg/dL (8.5-10.1); Chloride 108 mmol/L (98-107); Creatinine, Serum 0.86 mg/dL (0.55-1.02); EST Glomerular Filtration Rate 89 mL/min (>60); Est Glom Filt Rate - Afr Amer 108 mL/min (>60); Estimated Creatinine Clearance 90.11 ml/min; Glucose 83 mg/dL (74-106); Potassium 3.9 mmol/L (3.5-5.1); Sodium Level 138 mmol/L (136-145)
[2019-02-02 21:51] LABS: Differential Comment SCANNED
[2019-02-02 22:13] VITALS: BP 115/66; PULSE 60; RESP 16; O2SAT 100
== END 2019-02-02 22:13 | disposition home or self-care (01) ==
PROVIDERS: Emergency Provider Emergency Medicine
DX: M54.5 Low back pain (principal); R20.2 Paresthesia of skin; R07.89 Other chest pain; R00.2 Palpitations; M54.2 Cervicalgia; R53.1 Weakness
CPT/HCPCS: 70450; 71046; 72040; 80048; 84484; 85025; 93005; 99283; A4216

== ENCOUNTER → 2020-09-13 14:50 | Outpatient (CLI) | payer MEDICAID, SELFPAY | PROVIDERS: Visit Provider Advanced Practice Midwife | DX: Z03.818 Encounter for observation for suspected exposure to other biological agents ruled out (principal) | CPT/HCPCS: 87635; C9803; U0002 ==

== ENCOUNTER 2020-09-13 21:31 | Outpatient (CLI) | payer MEDICAID, SELFPAY ==
[2020-09-13 21:48] VITALS: BP 125/76; PULSE 100; TEMP 36.8; O2SAT 95
[2020-09-13 22:00] VITALS: BMI 29.8
--- NOTE | 2020-09-14 12:06 | PCM.PROGNOTE ---
Subjective Subjective: at 39w1d presented for contractions and increased pelvic pressure. No vaginal bleeding or leakage of fluid. Good movement. Objective Data Objective Data Vital Signs: Vital Signs Temp Pulse BP Pulse Ox 98.2 F 100 125/76 H 95 09/13/20 21:48 09/13/20 21:48 09/13/20 21:48 09/13/20 21:48 Weight: 174 lb Body Mass Index (BMI) 29.8 Physical Exam Narrative 135 moderate variability, accels, no decels, Reactive. TOCO:Irregular Cervix: 3cm, unchaged from office. Assessment & Plan Assessment/Plan (1) False labor: Status: Acute Code(s): O47.9 - False labor, unspecified (2) Term : Status: Acute Code(s): Z34.90 - Encounter for supervision of normal , unspecified, unspecified trimester Plan: 1) Rule out labor, false labor and no cervical change 2) D/C home 3) Follow up for IOL as scheduled.
== END 2020-09-13 22:56 | disposition home or self-care (01) ==
LOC: WPOUT 21:36 → OBT 21:38
PROVIDERS: Visit Provider Advanced Practice Midwife
DX: O47.1 False labor at or after 37 completed weeks of gestation (principal); Z3A.39 39 weeks gestation of pregnancy; Z03.818 Encounter for observation for suspected exposure to other biological agents ruled out
CPT/HCPCS: 59025; 59050; 87635; 99218; C9803; G0378; U0002

== ENCOUNTER 2020-09-16 10:10 | Inpatient (IN) | payer MEDICAID, SELFPAY ==
[2020-09-16] VITALS (30 sets, daily range): BP systolic 103–155; BP diastolic 54–87; PULSE 46–97; RESP 16; TEMP 36.4–37.6; O2SAT 82–100; BMI 29.8
[2020-09-16] MEDS: Lactated Ringers 1,000 ML 50 ML IV (10:30)
[2020-09-16 10:53] LABS: Absolute Lymphocyte Count 1.35 X10^3/uL (0.83-4.51); Absolute Neutrophil Count 12.9 X10^3/uL (2.0-7.7); Basophil# 0.04 X10^3/uL; Basophil% 0.3 % (0-1); Eosinophil# 0.04 X10^3/uL; Eosinophils% 0.3 % (0-5); Hematocrit 35.7 % (37-47); Hemoglobin 11.7 g/dL (12.0-15.0); Lymphocyte # 1.35 X10^3/ul (0.83-4.51); Mean Corp Hgb Conc 32.8 g/dL (32-36); Mean Corpuscular Hgb 28.3 pg (27.0-32.0); Mean Corpuscular Volume 86.2 fL (81-99); Mean Platelet Vol. 11.7 fl (6.2-12.0); Monocyte# 0.59 X10^3/uL; Monocyte% 3.9 % (0-10); NRBC Flagged by Analyzer 0 % (0-5); Neutrophil # 12.86 X10^3/uL (2.7-7.7); Neutrophil % 85.6 % (47-70); Platelet Count 170 K/mm3 (150-450); RBC Distribution Width SD 40.4 fl (35.1-43.9); Red Blood Count 4.14 M/mm3 (4.2-5.4)
[2020-09-16] MEDS: fentaNYL-bupivacaine (epidural) 100 ML BAG EPIDURAL (11:31)
[2020-09-16] MEDS: Lactated Ringers 500 ML 999 ML IV (11:36)
[2020-09-16] MEDS: Oxytocin 30 units/NS 500 ml 30 UNITS/500 ML IV.SOLN 334 UNITS IV (13:24)
--- NOTE | 2020-09-16 13:56 | PCM.HP.OB ---
HPI - General General Date of Admission: 09/16/20 HPI Narrative GENA STARK, is a 20 F who presents to unit with SROM and contractions. Patient reports she was getting out of bed this morning and had a gush of clear fluid. Continues to leak clear fluid. Positive movement. Feeling contractions every couple of minutes. Patient is a at 39.4 weeks gestation PFS Home Medications prenat.vits,chitra,[id number] [ #2] 1 tab PO DAILY 09/13/20 [History Last Taken 09/15/20] Allergy/AdvReac Type Severity Reaction Status Date / Time No Known Allergies Allergy Verified 09/16/20 10:26 no significant family history no surgical history Social History (System 06/18/18 @ 13:27 by Alvaro Balbuena) Smoking Status: Never smoker History Elective abortions Hx Para 1 Spontaneous abortions Hx # Term Pregnancies Ectopic pregnancies Hx # Pregnancies Multiple births # of living children NST FHR Rate Baby A Baseline: 140 Variability:: Moderate Accelerations:: 15 x 15 Decelerations:: None NST Reactive:: Yes FHR Category:: Category I Uterine Activity:: TOCO reading every 2-3 minutes ROS Eyes Eyes: Denies blurry vision, change in vision or spots in vision ENT HEENT: Denies dizziness or headache(s) Cardiovascular Cardiovascular: Denies abdominal pain, chest pain or dyspnea Respiratory/Chest Respiratory/Chest: Denies cough, dyspnea, shortness of breath at rest or shortness of breath with exertion Gastrointestinal Gastrointestinal: Denies abdominal pain, diarrhea or vomiting Genitourinary Genitourinary: Denies change in urinary stream, difficulty urinating or dysuria Musculoskeletal Musculoskeletal: Reports none Integumentary Integumentary: Denies rash Neurologic Neurologic: Denies dizziness, headache(s), memory loss or weakness Psychiatric Psychiatric: Reports none Vital Signs Vital Signs Vital Signs: 09/16/20 10:26 09/16/20 10:49 09/16/20 11:09 Temperature 98.2 F 98.8 F Temperature Source Tympanic Pulse Rate 87 Blood Pressure 109/57 L BP Systolic 109 BP Diastolic 57 Pulse Ox 09/16/20 11:15 09/16/20 11:18 09/16/20 11:20 Temperature Temperature Source Pulse Rate 80 79 68 Blood Pressure 127/87 H 121/58 H BP Systolic 127 121 BP Diastolic 87 58 Pulse Ox 100 05/01/21 11:23 09/16/20 11:25 09/16/20 11:28 Temperature Temperature Source Pulse Rate 67 81 79 Blood Pressure 118/54 L BP Systolic 118 BP Diastolic 54 Pulse Ox 98 100 09/16/20 11:34 09/16/20 11:36 09/16/20 11:39 Temperature Temperature Source Pulse Rate 78 91 78 Blood Pressure 116/57 L 117/57 L 120/59 L BP Systolic 116 117 120 BP Diastolic 57 57 59 Pulse Ox 98 98 09/16/20 11:44 09/16/20 11:45 09/16/20 11:49 Temperature Temperature Source Pulse Rate 90 70 80 Blood Pressure 108/59 L 106/57 L BP Systolic 108 106 BP Diastolic 59 57 Pulse Ox 99 98 09/16/20 11:51 09/16/20 11:53 09/16/20 12:25 Temperature 98.2 F Temperature Source Pulse Rate 46 L 83 Blood Pressure 106/60 119/66 BP Systolic 106 119 BP Diastolic 60 66 Pulse Ox 82 09/16/20 13:41 Temperature Temperature Source Pulse Rate 90 Blood Pressure 108/55 L BP Systolic 108 BP Diastolic 55 Pulse Ox Physical Exam Const alert, oriented x3 and no apparent distress General Appearance: cooperative Orientation / Consciousness: awake Exam Limitations: no limitations HEENT normocephalic Head and Scalp: normal to inspection Eyes General Eye: normal appearance of both eyes Neck full ROM and no lymphadenopathy Lymph Lymphatic: no lymphadenopathy noted Chest inspection of chest normal Resp normal respiratory effort, normal air movement and clear to auscultation bilaterally Effort and Inspection: able to speak in complete sentences and symmetric chest movement Cardio regular rate and regular rhythm GI normal to inspection, nondistended, normoactive bowel sounds Manual OB Exam: presentation cephalic, dilated 4, effaced 80 and station 0 Amniotic Fluid: clear amniotic fluid Back/Spine normal ROM Extremity full ROM and no calf tenderness Skin no rashes or lesions noted General Skin Exam: no breakdown Neuro oriented x3 and CN's II-XII intact bilaterally Psych mental status grossly normal and thought process normal Assessment & Plan Assessment/Plan (1) Term : Status: Acute Code(s): Z34.90 - Encounter for supervision of normal , unspecified, unspecified trimester (2) Spontaneous rupture of foetal membranes: Status: Acute Plan: Admit to labor and delivery Routine labs IV fluids per policy GBS negative ROM plus - positive Anticpate Dr. Tolliver notified and is collaborating physician
--- NOTE | 2020-09-16 14:29 | EX.PCM.OBRPT ---
Problems Associated Problem List Diagnoses (1) Laceration, obstetrical, first degree: (2) (normal spontaneous vaginal delivery): Report of Operation (OB) Information ALBERTO Calculator Estimated Delivery Date Method Current WG Current Estimate 09/19/20 Ultrasound #1 39w 4d Operative Information Post-Operative Diagnosis: live male Induction Maternal Presentation: Spontaneous Rupture of Membranes Maternal Presentation: Patient presented to triage with leakage of fluid and contractions. Findings Description of Procedure: Patient progressed to complete dilation. Provided bedside support throughout pushing. Infant head delivered with maternal effort followed by anterior and posterior shoulders. Vigorous infant placed on maternal abdomen and was attended to by nursing staff. 3 vessel cord clamped and cut after 2 minute delay. Infant placed immediately skin to skin with patient. Pitocin IV started for active management of the third stage of labor. Placenta delivered spontaneously and intact. After inspection, it was noted patient had a first degree perineal. Laceration repaired in usual fashion using 3-0 Vicryl. Hemostasis occurred. Fundus firm 2 below U. EBL 300cc. Patient and infant bonding well at this time. Surgery/ Procedure Performed: Spontaneous Vaginal Delivery Presentation: Positive for Vertex Amniotic Membrane Rupture Type: Spontaneous Time Membrane Ruptured: 0930 Amniotic Fluid Description: Clear Placental Delivery Description: Spontaneous Placenta Disposition: [facility] Infant Gender: Female (1 minute): 8 (5 minute): 9 Delayed Cord Clamping: Yes Esitmated Blood Loss (mL): 300 Medications Given Medications Given After Delivery: IV Pitocin Post Vaginal Delivery Episiotomy Description: None Laceration: Vaginal Extension/lac (Bilateral labial ) and 1st degree Complications Complications: None Baby B Information Amniotic Membrane Rupture Type: Spontaneous Operative Information (1 minute): 8 (5 minute): 9
--- NOTE | 2020-09-16 16:33 | NURSING ---
Report given to LANCE Moreno at this time.
[2020-09-17 00:38] VITALS: BP 96/34; PULSE 67; RESP 16; TEMP 36.3; O2SAT 96
[2020-09-17 03:58] VITALS: BP 106/68; PULSE 58; RESP 17; TEMP 36.7
[2020-09-17] MEDS: Acetaminophen 500 MG Tablet 1000 MG PO ×2 (04:08→12:40)
[2020-09-17] MEDS: Ibuprofen 600 MG Tablet PO (04:08)
[2020-09-17 08:39] VITALS: BP 101/70; PULSE 80; RESP 18; TEMP 36.3; O2SAT 95
--- NOTE | 2020-09-17 11:15 | PCM.DC ---
Discharge Instructions Outpatient Procedure Reason For Visit: VAGINAL DELIVERY Diet Discharge Diet: No restrictions Activity Discharge Activity: No Restrictions May resume sexual activity in: 6-8 weeks Weight Bearing Status: Weight bearing as tolerated Dressing / Incision Call your doctor if you observe: Fever of 101 or Higher, Inability to urinate, Using more than one pad per hour, Shortness of breath, Chest pain, Calf discomfort and Uncontrolled pain Follow Up Care Please Follow Up With: Jacqueline Marroquin CNM When: 2 weeks virtual visit/ 6 weeks in office Test Results: Test results from this visit will be discussed in further detail at your follow-up appointment, if applicable. Discharge Plan Admission Admit Date/Time: 09/16/20 10:10 Primary Reason for Your Visit: Vaginal delivery Attending Provider: Jacqueline Marroquin Primary Care Provider: Care Physician,No Primary Discharge Orders/Prescriptions Prescriptions: Continued prenat.vits,chitra,[id number] Tablet 1 tab PO DAILY RF: 0 Referrals: Care Physician,No Primary [Primary Care Provider] - Disposition Patient Disposition: Home, self care
--- NOTE | 2020-09-17 11:19 | PCM.PN.OB ---
Subjective Subjective: Patient seen at bedside. Feeling good. Denies any pain. Lochia decreasing. Ambulating and voiding without difficulty. Bottle feeding infant. Desires discharge home today. Objective Data Objective Data Vital Signs: Vital Signs Temp Pulse Resp BP Pulse Ox 97.3 F L 80 18 101/70 95 09/17/20 08:39 09/17/20 08:39 09/17/20 08:39 09/17/20 08:39 09/17/20 08:39 Oxygen Delivery Method Room Air Weight: 174 lb Body Mass Index (BMI) 29.8 Intake & Output: Intake and Output for Last 24 Hours 09/15/20 09/16/20 09/17/20 23:59 23:59 23:59 Intake Total 2000.00 / 1999.00 Output Total 650 / 650 Balance 1350.00 / 1350.00 Lab / Micro Data Result Diagrams: 09/16/20 10:30 Labs: Laboratory Results - last 24 hr 09/16/20 10:30 Blood Type A POSITIVE Antibody Screen NEGATIVE Physical Exam Const alert and no apparent distress General Appearance: cooperative and comfortable Exam Limitations: no limitations HEENT normocephalic Eyes General Eye: normal appearance of both eyes Neck full ROM General: normal visual inspection Chest Chest: symmetrical chest wall rise Resp normal respiratory effort and normal air movement Effort and Inspection: symmetric chest movement Auscultation: clear to auscultation bilaterally Cardio regular rate and regular rhythm GI normal to inspection, nondistended, normoactive bowel sounds Back/Spine normal ROM Extremity full ROM and no calf tenderness General Extremity: normal exam except as noted Skin no rashes or lesions noted Neuro CN's II-XII intact bilaterally Psych mental status grossly normal Assessment & Plan Assessment/Plan (1) Laceration, obstetrical, first degree: Status: Acute Code(s): O70.0 - First degree perineal laceration during delivery (2) Term : Status: Acute Code(s): Z34.90 - Encounter for supervision of normal , unspecified, unspecified trimester (3) (normal spontaneous vaginal delivery): Status: Acute Code(s): O80 - Encounter for full-term uncomplicated delivery Plan: Routine care Pain control with Motrin PO and Tylenol PO Discharge home today with follow up in office
[2020-09-17] MEDS: Prenatal Vits Tablet 1 TABLET PO (12:41)
== END 2020-09-17 16:00 | disposition home or self-care (01) | DRG 560 ==
PROVIDERS: Admitting Provider Advanced Practice Midwife; Referring Provider Advanced Practice Midwife; Visit Provider Advanced Practice Midwife
DX: O42.02 Full-term premature rupture of membranes, onset of labor within 24 hours of rupture (principal); O70.0 First degree perineal laceration during delivery; Z3A.39 39 weeks gestation of pregnancy; Z37.0 Single live birth
CPT/HCPCS: 59025; 59050; 85025; 86850; 86900; 86901; 87635; 99218; C9803; J7120; G0378; U0002

== ENCOUNTER 2023-07-09 07:00 | Inpatient (IN) | payer OTHER, SELFPAY ==
[2023-07-09] VITALS (65 sets, daily range): BP systolic 92–139; BP diastolic 46–80; PULSE 49–88; RESP 16; TEMP 36.1–37.6; O2SAT 89–100; BMI 32.8
[2023-07-09] MEDS: Lactated Ringers 1,000 ML 999 ML IV (07:40)
[2023-07-09 08:07] LABS: Absolute Lymphocyte Count 1.48 X10^3/uL (0.83-4.51); Absolute Neutrophil Count 6.9 X10^3/uL (2.0-7.7); Basophil# 0.02 X10^3/uL; Basophil% 0.2 % (0-1); Eosinophil# 0.05 X10^3/uL; Eosinophils% 0.6 % (0-5); Hematocrit 31.2 % (37-47); Hemoglobin 9.9 g/dL (12.0-15.0); Lymphocyte # 1.48 X10^3/ul (0.83-4.51); Lymphocyte % 16.5 % (19-41); Mean Corp Hgb Conc 31.7 g/dL (32-36); Mean Corpuscular Hgb 25.7 pg (27.0-32.0); Mean Platelet Vol. 12.8 fl (6.2-12.0); Monocyte# 0.54 X10^3/uL; NRBC Flagged by Analyzer 0 % (0-5); Neutrophil # 6.85 X10^3/uL (2.7-7.7); Neutrophil % 76.3 % (47-70); Platelet Count 180 K/mm3 (150-450); RBC Distribution Width CV 14.5 % (11.6-14.6); RBC Distribution Width SD 42.3 fl (35.1-43.9); Red Blood Count 3.85 M/mm3 (4.2-5.4)
--- NOTE | 2023-07-09 08:16 | PCM.HP.OB ---
HPI - General General Date of Admission: 07/09/23 HPI Narrative GENA STARK, is a 23 F at 39.2 weeks gestation who presents for elective induction of labor. Maternal Data Information ALBERTO Calculator Estimated Delivery Date Method Current WG Current Estimate 07/14/23 Manual 39w 2d PFSH PFSH Medical History no medical history Home Medications prenat.vits,chitra,[id number] 1 tab PO DAILY 09/13/20 [History Last Taken 09/15/20] Allergy/AdvReac Type Severity Reaction Status Date / Time No Known Allergies Allergy Verified 07/09/23 08:12 Family History no significant family his Surgical History no surgical history Social History (System 06/18/18 @ 13:27 by Alvaro Balbuena) Smoking Status: Never smoker History Elective abortions Hx Para 2 Spontaneous abortions Hx # Term Pregnancies Ectopic pregnancies Hx # Pregnancies Multiple births # of living children ROS Eyes Eyes: Denies blurry vision, change in vision or spots in vision ENT HEENT: Denies dizziness or headache(s) Cardiovascular Cardiovascular: Denies abdominal pain, chest pain or dyspnea Respiratory/Chest Respiratory/Chest: Denies cough, dyspnea, shortness of breath at rest or shortness of breath with exertion Gastrointestinal Gastrointestinal: Denies abdominal pain, diarrhea or vomiting Genitourinary Genitourinary: Denies change in urinary stream, difficulty urinating or dysuria Musculoskeletal Musculoskeletal: Reports none Integumentary Integumentary: Denies rash Neurologic Neurologic: Denies dizziness, headache(s), memory loss or weakness Psychiatric Psychiatric: Reports none Vital Signs Vital Signs Vital Signs: 07/09/23 07:24 07/09/23 07:24 07/09/23 07:25 Pulse Rate 82 Blood Pressure 109/50 L BP Systolic 109 BP Diastolic 50 Pulse Ox 98 07/09/23 07:25 Pulse Rate 82 Blood Pressure BP Systolic BP Diastolic Pulse Ox Weight Weight: 191 lb 0.8 oz Body Mass Index (BMI) 32.8 Physical Exam Const alert, oriented x3 and no apparent distress General Appearance: cooperative Orientation / Consciousness: awake Exam Limitations: no limitations HEENT normocephalic Head and Scalp: normal to inspection Eyes General Eye: normal appearance of both eyes Neck full ROM and no lymphadenopathy Lymph Lymphatic: no lymphadenopathy noted Chest inspection of chest normal Resp normal respiratory effort, normal air movement and clear to auscultation bilaterally Effort and Inspection: able to speak in complete sentences and symmetric chest movement Cardio regular rate and regular rhythm GI normal to inspection, nondistended, normoactive bowel sounds Manual OB Exam: presentation cephalic Back/Spine normal ROM Extremity full ROM and no calf tenderness Skin no rashes or lesions noted General Skin Exam: no breakdown Neuro oriented x3 and CN's II-XII intact bilaterally Psych mental status grossly normal and thought process normal Labs Labs Labs: Blood Type A POSITIVE Antibody Screen NEGATIVE Hct 31.2 % (37-47) L Hgb 9.9 g/dL (12.0-15.0) L Syphilis Total Ab Pending Rhogam given: No GBS negative Assessment & Plan (1) 39 weeks gestation of : (2) Encounter for elective induction of labor: (3) History of depression: (4) Anxiety: PLAN: Plan Admit to labor and delivery TAUS confirms vertex CE- closed Start Cytotec 25 mcg PO every 4 hours with maximum of 6 doses Anticipate placement of zarco bulb Dr. Tolliver notified and is collaborating physician
[2023-07-09] MEDS: miSOPROStol 25 MCG TABLET PO (08:19)
[2023-07-09 09:00] LABS: Syphilis Antibodies Non-reactive
[2023-07-09] MEDS: 0.9% Normal Saline Single 100 ML IV.SOLN. INTRA-UTER (12:30)
--- NOTE | 2023-07-09 12:33 | PCM.PN.OB ---
Subjective Subjective Patient seen at bedside. Denies pain. Objective Data Objective Data Vital Signs: Vital Signs Temp Pulse BP Pulse Ox 97.5 F L 82 109/50 L 98 07/09/23 08:18 07/09/23 07:25 07/09/23 07:25 07/09/23 07:24 Weight: 191 lb 0.8 oz Body Mass Index (BMI) 32.8 Intake & Output: Intake and Output for Last 24 Hours 07/07/23 07/08/23 07/09/23 23:59 23:59 23:59 Intake Total 557.83 / 557.83 Balance 557.83 / 557.83 Lab / Micro Data 07/09/23 07:35 Labs: Laboratory Results - last 24 hr 07/09/23 07:35: WBC 9.0, RBC 3.85 L, Hgb 9.9 L, Hct 31.2 L, MCV 81.0, MCH 25.7 L, MCHC 31.7 L, RDW Std Deviation 42.3, RDW Coeff of Lisseth 14.5, Plt Count 180, MPV 12.8 H, Immature Gran % (Auto) 0.400, Neut % (Auto) 76.3 H, Lymph % (Auto) 16.5 L, [place] % (Auto) 6.0, Eos % (Auto) 0.6, Baso % (Auto) 0.2, Absolute Neuts (auto) 6.9, Absolute Lymphs (auto) 1.48, Nucleated RBC % 0, Syphilis Total Ab Non-reactive, Blood Type A POSITIVE, Antibody Screen NEGATIVE NST FHR Rate Baby A Baseline: 130 Variability:: Moderate Accelerations:: 15 x 15 Decelerations:: None NST Reactive:: Yes FHR Category:: Category I Uterine Activity:: irritability Assessment & Plan (1) 39 weeks gestation of : (2) Encounter for elective induction of labor: (3) History of depression: (4) Anxiety: PLAN: Plan CE / Garcia bulb placed and balloon filled with 30 cc N/S Start Pitocin IV at 2 mu/min 4 hours after Cytotec PO dose given NST reactive Ambulate Pain medication as indicated Dr. Tolliver updated on above and plan of care
[2023-07-09] MEDS: Lactated Ringers 1,000 ML 200 ML IV ×2 (12:53→15:37)
[2023-07-09] MEDS: Oxytocin 15 Units/NS 250ml 15 UNITS/250 ML IV.SOLN 2 UNITS IV (13:26)
[2023-07-09] MEDS: LACTATED RINGERS 500 ML 999 ML IV (14:35)
[2023-07-09] MEDS: fentaNYL-bupivacaine (epidural) 100 ML BAG EPIDURAL (15:48)
--- NOTE | 2023-07-09 18:00 | PCM.PN.CNM ---
Subjective Subjective Patient seen at bedside. Comfortable with epidural. Objective Data Objective Data Vital Signs: Vital Signs Temp Pulse BP Pulse Ox 97.0 F L 60 119/64 95 07/09/23 17:43 07/09/23 17:44 07/09/23 17:44 07/09/23 17:43 Weight: 191 lb 0.8 oz Body Mass Index (BMI) 32.8 Intake & Output: Intake and Output for Last 24 Hours 07/07/23 07/08/23 07/09/23 23:59 23:59 23:59 Intake Total 1622.26 / 1622.26 Output Total 500 / 500 Balance 1122.26 / 1122.26 Lab / Micro Data 07/09/23 07:35 Labs: Laboratory Results - last 24 hr 07/09/23 07:35: WBC 9.0, RBC 3.85 L, Hgb 9.9 L, Hct 31.2 L, MCV 81.0, MCH 25.7 L, MCHC 31.7 L, RDW Std Deviation 42.3, RDW Coeff of Lisseth 14.5, Plt Count 180, MPV 12.8 H, Immature Gran % (Auto) 0.400, Neut % (Auto) 76.3 H, Lymph % (Auto) 16.5 L, [place] % (Auto) 6.0, Eos % (Auto) 0.6, Baso % (Auto) 0.2, Absolute Neuts (auto) 6.9, Absolute Lymphs (auto) 1.48, Nucleated RBC % 0, Syphilis Total Ab Non-reactive, Blood Type A POSITIVE, Antibody Screen NEGATIVE Assessment & Plan (1) 39 weeks gestation of : (2) Encounter for elective induction of labor: (3) History of depression: (4) Anxiety: PLAN: Plan NST reactive CE- /-1 bulging bag AROM for moderate amount of clear fluid IUPC placed without difficulty Continue Pitocin IV per orders Anticipate
[2023-07-09] MEDS: Oxytocin 10 UNITS/ML Vial IM (19:10)
--- NOTE | 2023-07-09 19:10 | EX.PCM.OBRPT ---
Assessment & Plan (1) (spontaneous vaginal delivery): (2) Anxiety: (3) History of depression: (4) Laceration, obstetrical, first degree: Maternal Data Information ALBERTO Calculator Estimated Delivery Date Method Current WG Current Estimate 07/14/23 Manual 39w 2d Vaginal Delivery Maternal Presentation Maternal Presentation: Elective Induction Maternal Presentation: at 39.2 weeks gestation for an elective induction of labor. Type of Induction: Pitocin, Garcia Bulb, Amniotomy and Cytotec Operative Information Date of Procedure: 07/09/23 Pre-Operative Diagnosis: Term gestation, Induction of labor Post-Operative Diagnosis: , Live male infant Surgery / Procedure Performed: Spontaneous Vaginal Delivery Type of Anesthesia: Epidural Drain: Garcia to straight drain Estimated Blood Loss: 350 Time of Delivery: 18:51 Findings Description of Procedure: Patient quickly progressed to complete dilation. With minimal maternal effort, head delivered. Cord around neck easily reduced and anterior shoulder delivered followed by remainder of infant without traction. Vigorous male placed on maternal abdomen and was attended to by nursing staff. Pitocin IM and IV started for active management of the third stage of labor. Cord clamped and cut by FOB after delay and placed skin to skin. Placenta delivered spontaneously and intact. Fundus firm 1 below U. First degree laceration repaired in usual fashion using Vicryl 3-0 rapid. Hemostasis obtained. Vaginal sweep x 1 completed by me. All sponges and needles accounted for. Patient and bonding well at this time. Dr. Tolliver notified of delivery. Presentation: Vertex Amniotic Membrane Rupture Type: Artificial Time of Membrane Rupture: 1754 Amniotic Fluid Description: Clear Placental Delivery Description: Spontaneous Placenta Disposition: [facility] Cord Vessel Description: 3 Vessels Cord Entanglement: Around neck x 1, loose Nuchal Cord Compression: Without compression A Gender: Male (1 minute): 8 (5 minute): 9 Delayed Cord Clamping: Yes Post Vaginal Delivery Medications Given After Delivery: IV Pitocin and IM Pitocin Episiotomy Description: None Laceration: 1st degree Complication Complications: None
[2023-07-09] MEDS: Oxytocin 15 Units/NS 250ml 15 UNITS/250 ML IV.SOLN 83 UNITS IV (19:25)
[2023-07-10] VITALS (7 sets, daily range): BP systolic 108–121; BP diastolic 59–67; PULSE 56–81; RESP 16; TEMP 36.2–37.5
--- NOTE | 2023-07-10 07:17 | PCM.DC.SUM ---
Providers Date of Admission: 07/09/23 Primary Care Physician: No Primary Care Phys Reason For Visit: VAGINAL DELIVERY Diagnosis Discharge Diagnosis (1) (spontaneous vaginal delivery): Status: Acute Code(s): O80 - Encounter for full-term uncomplicated delivery (2) Anxiety: Status: Acute Code(s): F41.9 - Anxiety disorder, unspecified (3) History of depression: Status: Acute Code(s): Z87.59 - Personal history of other complications of , childbirth and the puerperium; Z86.59 - Personal history of other mental and behavioral disorders (4) Laceration, obstetrical, first degree: Status: Acute Code(s): O70.0 - First degree perineal laceration during delivery Plan PPD 1 Routine care Formula feeding Desires discharge home tonight Medications at Discharge Home Medications prenat.vits,chitra,qcb-melu-bpwwg 1 tab PO DAILY 09/13/20 Hospital Course Operations None Procedures None Summary of Care Provided Minutes Spent on Discharge: 15 Hospital Course: Patient had . Hospital course was uneventful. Physical Exam Narrative Patient seen at bedside. Denies pain. Ambulating and voiding without difficulty. Formula feeding. Desires discharge home tonight. Const alert and no apparent distress General Appearance: cooperative and comfortable Exam Limitations: no limitations HEENT normocephalic Eyes General Eye: normal appearance of both eyes Neck full ROM General: normal visual inspection Chest Chest: symmetrical chest wall rise Resp normal respiratory effort and normal air movement Effort and Inspection: symmetric chest movement Auscultation: clear to auscultation bilaterally Cardio regular rate and regular rhythm GI normal to inspection, nondistended, normoactive bowel sounds Back/Spine normal ROM Extremity full ROM and no calf tenderness General Extremity: normal exam except as noted Skin no rashes or lesions noted Neuro CN's II-XII intact bilaterally Psych mental status grossly normal Weight / BMI Weight Weight: 191 lb 0.8 oz Body Mass Index (BMI) 32.8 ABG / Lab / Microbiology Data 07/09/23 07:35 Laboratory: Laboratory Results - last 24 hr 07/09/23 07:35: WBC 9.0, RBC 3.85 L, Hgb 9.9 L, Hct 31.2 L, MCV 81.0, MCH 25.7 L, MCHC 31.7 L, RDW Std Deviation 42.3, RDW Coeff of Lisseth 14.5, Plt Count 180, MPV 12.8 H, Immature Gran % (Auto) 0.400, Neut % (Auto) 76.3 H, Lymph % (Auto) 16.5 L, [place] % (Auto) 6.0, Eos % (Auto) 0.6, Baso % (Auto) 0.2, Absolute Neuts (auto) 6.9, Absolute Lymphs (auto) 1.48, Nucleated RBC % 0, Syphilis Total Ab Non-reactive, Blood Type A POSITIVE, Antibody Screen NEGATIVE D/C Instructions Discharge Diet: No restrictions Discharge Activity: Return to Normal Activity, May Shower and May Take a Tub Bath May resume sexual activity in: 4-6 weeks Weight Bearing Status: Weight bearing as tolerated Call your doctor if you observe: Fever of 101 or Higher, Inability to urinate, Using more than 1 pad per hour, Shortness of breath, Dizziness, Swelling in the ankles, Chest pain, Calf discomfort and Uncontrolled pain Please Follow Up With: Jacqueline Marroquin CNM When: Within 10 days Meaningful Use Info Meaningful Use Diagnoses (Choose all that apply): None applicable Discharge Plan Admission Admit Date/Time: 07/09/23 07:00 Primary Reason for Your Visit: Labor and Delivery Attending Provider: Jacqueline Marroquin Primary Care Provider: Care Physician,Azra Primary Discharge Orders/Prescriptions Prescriptions: No Action prenat.vits,chitra,ctf-fszz-dzumb Tablet 1 tab PO DAILY Referrals / Follow Up: Care Physician,No Primary [Primary Care Provider] - Disposition Disposition (needs filled in before D/C Order can be placed): Home, Self Care
[2023-07-10] MEDS: Naproxen 500 MG Tablet PO (08:44)
[2023-07-10] MEDS: Ferrous Sulfate 325 MG Tablet PO ×2 (14:03→17:57)
--- NOTE | 2023-07-11 09:07 | CASEMGMT ---
Social Work Assessment Labor and Delivery Unit Patient Address:[address] [id number] Phone number: [phone] Date of Referral: 07/09/23 Time of Referral:? 2307 Referred By: Jacqueline Marroquin Date of Intervention: ?07/10/23? Time of Intervention:? 1600 Reason for Referral:? depression, father with history of ETOH and drug use Sw completed chart review and acknowledges social work consult. Sw presented to bedside and introduced self to mother of baby (MOB- Saira) and father of baby (FOXochitl- Gregg). Sw explained reason for sw involvement and completed psychosocial assessment. History obtained from: medical records, MOB and FOB Household composition: Currently residing in the family home is JOSÉ MANUEL LAI, their two year old daughter (Andrés), MING's 5 year old son (Herb) and now baby will also reside with family when discharged from labor and delivery unit. Parents deny any issues or concerns with their housing. Patient's parent/guardian status:? ?MING states that she and JOSÉ MANUEL knew each other from high school, they dated a long time ago until JOSÉ MANUEL moved to a different school district. Then they re-connected and have been together for 5 years. No concerns reported at this time regarding domestic violence or intimate partner violence. Medical History: ?MING is 23 year old female who is 3, para 2- now 3 following labor and delivery of . MING received routine care during with [facility]. MING delivered baby on 07/09/23 via vaginal delivery at 39 weeks gestation. Baby boy, named Babatunde, was born weighing 7lb 10oz and his apgars were 8 and 9 at one and five minutes of life, respectfully. MING is bottle feeding and states that this is going well. Baby will be followed by Dr. Sun for pediatrics. Educational Status:? Both parents graduated high school, MOB attended some college but did not graduate. Parents deny issues with reading, learning or comprehension. Financial Status: Both parents work outside of the home. JOSÉ MANUEL works for [email or web address] and is able to take some time off of work now that baby has been born. MING works for [employer] and is taking 12 weeks off of work. Supplies:?? Parents have obtained all necessary baby supplies, including: car seat, safe sleep space, clothes, diapers, wipes and bottle supplies. Childcare/Caregiver(s):?MING will be the primary caregiver to baby along with JOSÉ MANUEL when he is not at work. Parents report that once both parents are returned to work they alternate their schedule so one of them is able to be with the children so they do not need to hire a wearing apparel shaker. Transportation:?? No barriers. Programs/Agencies Involved: ???MING is connected to [facility], but states that they are over income for all other financial community supports. Children Services/Legal Issues:??No history of involvement, no issues or concerns warranting referral to be made at this time. ? Behavioral Health Issues: ??Mental Health History:??JOSÉ MANUEL denies mental health diagnoses. MING states that she has a history of anxiety and did experience some depression after the of her daughter. When discussing symptoms of baby blues vs. depression/ anxiety. MING states that she may have experienced the blues, mixed with some rage. MING states that she was working at [employer] at that time, and she took 16 weeks off of work. MING states that when she returned to work she was anxious and that came out in rage/ anger. MING states that ultimately she quit her job and took some more time off of work and that significantly helped her mental health. MING states that she did talk to her OBGYN about these issues, but did not want to get on medication. MING reports that she tries to do everything she can to manage her symptoms herself without relying on medication to help. ? Substance Use History:?MING denies substance use prior to and during . JOSÉ MANUEL also denies substance use. ? Family History: MING reports that her father has history of alcoholism and he has been putting forth more effort to be involved in her life. He is not a person that they identify as a childcare provider. ? Drug Screens: NO drug screens observed during chart review. ?? Family/Social Stressors:? Parents deny any issues or concerns at this time. Support Systems: Parents state that they have a lot of friends and family who are supportive. Depression/Shaken Baby/Safe Sleeping:? Dianne educated parents on signs and symptoms of baby blues and depression and anxiety. Sw explained the difference between blues and depression. Sw provided literature for MOB and FOB to review that also provides appropriate coping skills for MOB to utilize if she were to struggle during this period. Sw educated parents on shaken baby prevention and ABCs of safe sleep. Parents express understanding. FOB states that he feels he would be able to recognize a change in MOB if she were to struggle with issues during this period. FOB states that he also feels as though he would know how to support MOB if she were to struggle. MOB agrees with this and states that FOB is her biggest support person. ASSESSMENT:? MOB and baby admitted following labor and delivery of . MOB extremely talkative and receptive to sw involvement and support. FOB observed to provide appropriate hands on care of . Baby needed to wake up to feed and FOB attempted to do this several times. Nursing staff came in and provided education to parents on how to get baby to wake up to do a feed with him. MOB with history of rage/ anxiety. MOB receptive to discussing this experience with sw and was open to hearing recommendations on how to deal with this should she experience it again during this period. PLAN:? MOB and baby to be discharged when medically ready. ?No other services requested or indicated. Desiree Ludwig, STATISTICAL TECHNICIAN, SYNOPTIC METEOROLOGIST
--- NOTE | 2023-07-14 14:36 | NURSING ---
Follow up phone called performed. Pt. reports feeling good. Baby is doing well. Adjusting to sleep schedule still. Feedings have been going okay, with taking about 2oz every 3-4 hours. Denies questions or concerns. Informed she can always call if she needs anything.
== END 2023-07-10 19:20 | disposition home or self-care (01) | DRG 807 ==
PROVIDERS: Admitting Provider Advanced Practice Midwife; Referring Provider Advanced Practice Midwife; Visit Provider Advanced Practice Midwife
DX: O69.81X0 Labor and delivery complicated by cord around neck, without compression, not applicable or unspecified (principal); Z37.0 Single live birth; O99.344 Other mental disorders complicating childbirth; F41.9 Anxiety disorder, unspecified; O70.0 First degree perineal laceration during delivery; Z3A.39 39 weeks gestation of pregnancy; Z87.59 Personal history of other complications of pregnancy, childbirth and the puerperium
CPT/HCPCS: 59025; 59050; 85025; 86780; 86850; 86900; 86901; 99221; J7120; G0378

== ENCOUNTER 2024-06-18 15:05 | Emergency (ER) | payer OTHER, MEDICAID, SELFPAY ==
[2024-06-18 15:06] VITALS: BP 90/67; PULSE 116; RESP 16; TEMP 36.6; O2SAT 98
[2024-06-18] MEDS: 0.9% Normal Saline (1000mL) 1,000 ML 999 ML IV ×2 (15:27→17:25)
[2024-06-18 15:46] LABS: Absolute Lymphocyte Count 0.47 X10^3/uL (0.83-4.51); Absolute Neutrophil Count 12.4 X10^3/uL (2.0-7.7); Basophil# 0.04 X10^3/uL; Basophil% 0.3 % (0-1); Eosinophil# 0.03 X10^3/uL; Eosinophils% 0.2 % (0-5); Hematocrit 48.9 % (37-47); Hemoglobin 15.2 g/dL (12.0-15.0); Lymphocyte # 0.47 X10^3/ul (0.83-4.51); Lymphocyte % 3.4 % (19-41); Mean Corp Hgb Conc 31.1 g/dL (32-36); Mean Corpuscular Hgb 26.6 pg (27.0-32.0); Mean Corpuscular Volume 85.5 fL (81-99); Monocyte# 0.71 X10^3/uL; Monocyte% 5.2 % (0-10); NRBC Flagged by Analyzer 0 % (0-5); Neutrophil # 12.43 X10^3/uL (2.7-7.7); Neutrophil % 90.4 % (47-70); POSITIVE DIFFERENTIAL YES; Platelet Count 285 K/mm3 (150-450); RBC Distribution Width CV 14.1 % (11.6-14.6); RBC Distribution Width SD 44.3 fl (35.1-43.9); Red Blood Count 5.72 M/mm3 (4.2-5.4); White Blood Count 13.8 K/mm3 (4.4-11.0)
[2024-06-18 15:59] LABS: Internal QC Validated? YES +Cl - CLEAR BKGD; Pregnancy, Serum, hCG Quali. NEGATIVE Negative
[2024-06-18 16:10] LABS: ALB/GLOB Ratio 0.7 RATIO (0.9-2.4); AST(SGOT) 28 U/L (15-37); Alanine Aminotransfer ALT/SGPT 69 U/L (13-56); Albumin, Serum 3.7 g/dL (3.2-5.0); Alkaline Phosphatase 76 U/L (45-117); Anion Gap 9 (5-15); BUN 10 mg/dL (7-18); BUN/Creat Ratio 10.8 RATIO (10-20); Calcium,Total 9.9 mg/dL (8.5-10.1); Chloride 111 mmol/L (98-107); Creatinine, Serum 0.92 mg/dL (0.55-1.02); EST Glomerular Filtration Rate 78 mL/min (>60); Est Glom Filt Rate - Afr Amer 94 mL/min (>60); Globulin 5.2 g/dL (2.2-4.2); Glucose 98 mg/dL (74-106); Protein, Total 8.9 g/dL (6.4-8.2); Sodium Level 140 mmol/L (136-145)
--- NOTE | 2024-06-18 17:08 | EDS_ITS ---
HPI <YESIKA Miller - Last Filed: 06/18/24 19:08> History of Present Illness Chief Complaint: Nausea/Vomiting Narrative Narrative: Patient is a 24-year-old female with no significant medical history presents to the [facility] apartment for 5 to 6 days of worsening viral-like symptoms. Patient states she started out for the cough, congestion. She then felt that most of the infection was in her chest. Patient states over the last 24 hours, the patient has been having nausea and vomiting cannot even keep ice chips down. Patient states that her entire household is ill however she is only 1 that is having vomiting diarrhea. She states to have low-grade fevers. Denies any specific abdominal pain. Denies any blood in her stool or vomit. [facility] <YESIKA Miller - Last Filed: 06/18/24 19:08> [facility] Medical History (Updated 06/18/24 @ 19:07 by YESIAK Miller) (spontaneous vaginal delivery) Anxiety History of depression Encounter for elective induction of labor 39 weeks gestation of Laceration, obstetrical, first degree Home Medications ?Medication ?Instructions ?Recorded ?Last Taken ?Type prenat.vits,chitra,mfa-xxws-idvuc 1 tab PO DAILY pregnanc y 09/13/20 09/15/20 History ondansetron 4 mg disintegrating 4 mg PO Q8H PRN PRN Na usea #10 tabs 06/18/24 Unknown Rx tablet Allergy/AdvReac Type Severity Reaction Status Date / Time No Known Allergies Allergy Verified 06/18/24 15:06 Social History (System 06/18/18 @ 13:27 by Alvaro Balbuena) Smoking Status: Never smoker ROS <YESIKA Miller - Last Filed: 06/18/24 19:08> ROS ED ROS Narrative Constitutional: Negative for weight loss. Positive for weakness Eyes: Negative for vision loss, vision change, double vision ENT: Negative for any sore throat, ear pain, congestion Cardiovascular: Negative for any chest pain, tightness, palpitations Respiratory: Negative for any cough, sputum production, hemoptysis, dyspnea, dyspnea on exertion, orthopnea Gastrointestinal: Negative for any abdominal pain, constipation, blood in stool, blood in vomit. Positive for nausea, vomiting, diarrhea : Negative for any urinary frequency, dysuria, retention, blood in urine Muscle skeletal: Negative for any neck pain, back pain Neurological: Negative for any headache, syncope, dizziness Skin: Negative for any rashes, itching, abrasions, lacerations Psychiatric: Negative for any depression, anxiety, stress, suicidal ideation, homicidal ideation Hematologic: Negative for any excessive bruising, easy bleeding EXAM <YESIKA Miller - Last Filed: 06/18/24 19:08> Physical Exam Narrative Exam Narrative: Vital signs reviewed. Patient on my initial evaluation does seem to not feel well. HEET: Head normocephalic atraumatic, TMs clear bilaterally. Posterior pharynx is clear, dry mucous membranes. Nares clear bilaterally. Neck: Supple with no lymphadenopathy or tenderness. No signs of meningismus. Cardiac: Regular rate and rhythm no murmurs gallops or rubs, equal peripheral pulses bilaterally. Respiratory: Lungs clear to auscultation bilaterally. No chest tenderness. Abdomen: Soft, nontender, nondistended. No abdominal bruit or pulsatile masses. No hepatosplenomegaly Extremities: No peripheral edema, no signs of gross trauma or deformity. Active full range of motion of all extremities. Neuro: Cranial nerves II through XII intact, no focal neurological deficits. Skin: Clean dry and intact with no rash, purpura, petechiae, vesicles or pustules. Backs/flank: No CVA tenderness, no midline spinal tenderness, no deformity. Psych: Normal mood and affect. No SI, HI or acute psychosis. Const Vital Signs: 06/18/24 15:06 06/18/24 17:38 06/18/24 19:00 Temperature 97.8 F Temperature Source Temporal Pulse Rate 116 H 71 87 Respiratory Rate 16 16 17 Blood Pressure 90/67 Blood Pressure Mean 74 Pulse Ox 98 98 98 Oxygen Delivery Method Room Air Room Air Room Air 06/18/24 19:22 Temperature 98.0 F Temperature Source Pulse Rate 87 Respiratory Rate 18 Blood Pressure Blood Pressure Mean Pulse Ox 97 Oxygen Delivery Method <Tim Sousa MD - Last Filed: 06/18/24 20:12> Physical Exam Const Vital Signs: 06/18/24 15:06 06/18/24 17:38 06/18/24 19:00 Temperature 97.8 F Temperature Source Temporal Pulse Rate 116 H 71 87 Respiratory Rate 16 16 17 Blood Pressure 90/67 Blood Pressure Mean 74 Pulse Ox 98 98 98 Oxygen Delivery Method Room Air Room Air Room Air 06/18/24 19:22 Temperature 98.0 F Temperature Source Pulse Rate 87 Respiratory Rate 18 Blood Pressure Blood Pressure Mean Pulse Ox 97 Oxygen Delivery Method [facility] <Moody ShirleyYESIKA - Last Filed: 06/18/24 19:08> [facility] Lab Data Labs: Laboratory Results - last 24 hr 06/18/24 06/18/24 15:22 17:35 WBC 13.8 H RBC 5.72 H Hgb 15.2 H Hct 48.9 H MCV 85.5 MCH 26.6 L MCHC 31.1 L RDW Std Deviation 44.3 H RDW Coeff of Lisseth 14.1 Plt Count 285 MPV 12.0 Immature Gran % (Auto) 0.500 Neut % (Auto) 90.4 H Lymph % (Auto) 3.4 L [place] % (Auto) 5.2 Eos % (Auto) 0.2 Baso % (Auto) 0.3 Absolute Neuts (auto) 12.4 H Absolute Lymphs (auto) 0.47 L Nucleated RBC % 0 Sodium 140 Potassium 4.0 Chloride 111 H Carbon Dioxide 20.0 L Anion Gap 9 BUN 10 Creatinine 0.92 Est GFR (MDRD) Af Amer 94 Est GFR (MDRD) Non-Af 78 BUN/Creatinine Ratio 10.8 Glucose 98 Calcium 9.9 Total Bilirubin 0.60 AST 28 ALT 69 H Alkaline Phosphatase 76 Total Protein 8.9 H Albumin 3.7 Globulin 5.2 H Albumin/Globulin Ratio 0.7 L Serum , Qual NEGATIVE Urine Color Purnima Urine Clarity Cloudy Urine pH 5.0 Ur Specific Allgood 1.020 Urine Protein 100 H Urine Glucose (UA) Normal Urine Ketones 5 H Urine Occult Blood 250 H Urine Nitrite Negative Urine Bilirubin 1 H Urine Urobilinogen 1 H Ur Leukocyte Esterase 25 H Urine RBC > 100 SEEN Urine WBC 0-5 SEEN Ur Squamous Epith Cells 0 SEEN Urine Bacteria 1+ Urine Mucus 1+ Treatment and Re-Evaluation :: Differential diagnosis includes however is not limited to: COVID-19, influenza, RSV, viral gastroenteritis, dehydration, electrolyte abnormality Patient slightly hypotensive, tachycardic.Patient did receive some basic laboratory values out in triage, she did have a white blood cell count of 13.8, she is hemoconcentrated with a hemoglobin of 15.2, hematocrit of 48.9. Patient's chemistries show slight elevation in ALT at 69, patient's serum was negative. No significant electrolyte abnormalities. Carbon oxide 20, physical examination is consistent with dehydration, laboratory values shows dehydration. Patient will receive a total of 2 L of normal saline, IV Zofran, Toradol. Patient will be reevaluated. On reevaluation, the patient was feeling much better. Patient was able to pass a p.o. challenge. At this time, patient feels well enough for discharge. Her vital signs have normalized. Patient will be given a prescription for Zofran for home. COVID-19 influenza RSV was negative. She will return here for any worsening symptoms, all questions answered, stable for discharge. <Tim Sousa MD - Last Filed: 06/18/24 20:12> [facility] MDM Narrative Medical decision making narrative: Dr. Sousa: I have personally performed a face to face assessment of the patient and have reviewed the KRISTINA Note. I performed a substantive portion of the visit including all aspects of the following. My fox findings include: History is sick since Friday, 5 days ago. Now with nausea, vomiting, and diarrhea. Exam is afebrile. Vital signs noted. Nontoxic-appearing. Initial tachycardia on cardiovascular examination. Lungs clear to auscultation bilaterally. Abdomen soft without guarding or rebound. Medical Decision Making: Check labs. IV fluids. P.o. challenge. Discharge. Other additions or changes: [None] History & Record Review Discussion w/independent historian: Patient Lab Data Attestation: I reviewed the patient's lab results. Labs: Laboratory Results - last 24 hr 06/18/24 06/18/24 15:22 17:35 WBC 13.8 H RBC 5.72 H Hgb 15.2 H Hct 48.9 H MCV 85.5 MCH 26.6 L MCHC 31.1 L RDW Std Deviation 44.3 H RDW Coeff of Lisseth 14.1 Plt Count 285 MPV 12.0 Immature Gran % (Auto) 0.500 Neut % (Auto) 90.4 H Lymph % (Auto) 3.4 L [place] % (Auto) 5.2 Eos % (Auto) 0.2 Baso % (Auto) 0.3 Absolute Neuts (auto) 12.4 H Absolute Lymphs (auto) 0.47 L Nucleated RBC % 0 Sodium 140 Potassium 4.0 Chloride 111 H Carbon Dioxide 20.0 L Anion Gap 9 BUN 10 Creatinine 0.92 Est GFR (MDRD) Af Amer 94 Est GFR (MDRD) Non-Af 78 BUN/Creatinine Ratio 10.8 Glucose 98 Calcium 9.9 Total Bilirubin 0.60 AST 28 ALT 69 H Alkaline Phosphatase 76 Total Protein 8.9 H Albumin 3.7 Globulin 5.2 H Albumin/Globulin Ratio 0.7 L Serum , Qual NEGATIVE Urine Color Purnima Urine Clarity Cloudy Urine pH 5.0 Ur Specific [place] 1.020 Urine Protein 100 H Urine Glucose (UA) Normal Urine Ketones 5 H Urine Occult Blood 250 H Urine Nitrite Negative Urine Bilirubin 1 H Urine Urobilinogen 1 H Ur Leukocyte Esterase 25 H Urine RBC > 100 SEEN Urine WBC 0-5 SEEN Ur Squamous Epith Cells 0 SEEN Urine Bacteria 1+ Urine Mucus 1+ Discharge Plan Triage Chief Complaint: Nausea/Vomiting ED Midlevel Provider: Moody Shirley ED Provider: Tim Sousa Dx/Rx/DC Orders Clinical Impression: Viral gastroenteritis Instructions: ED Gastritis (Adult), ED Gastroenteritis, Viral (Adult) Prescriptions: New ondansetron 4 mg tablet,disintegrating 4 mg PO Q8H PRN PRN (Reason: Nausea) Qty: 10 0RF No Action prenat.vits,chitra,zdu-ilgb-irfzr Tablet 1 tab PO DAILY Primary Care Provider: Care Physician,No Primary Referrals: Care Physician,No Primary [Primary Care Provider] - Activity Restrictions/Additional Instructions: Advance her diet as tolerated. Use the nausea medicine for nausea. Print Language: Polish Disposition Disposition: Home, Self Care Discharge Date/Time: 06/18/24 19:23
[2024-06-18] MEDS: Ondansetron 4 MG/2 ML Vial IV (17:26)
[2024-06-18] MEDS: Ketorolac 15 MG/ML Vial IV (17:26)
[2024-06-18 17:38] VITALS: PULSE 71; RESP 16; O2SAT 98; BMI 28.0
[2024-06-18 17:44] LABS: Squamous Epithelial Cells - UA 0 SEEN /hpf (5-10)
[2024-06-18 17:52] LABS: Color, Urine Amber (Yellow); Glucose, Dipstick Normal (Normal); Ketone-Dipstick 5 mg/dl (Negative); Leukocyte Esterase-Dipstick 25 /ul (Negative); Nitrite-Dipstick Negative (Negative); Occult Blood-Urine 250 /ul (Negative); Protein-Dipstick 100 mg/dl (Negative); Urine Clarity Cloudy (Clear); Urine Urobilinogen 1 mg/dl (Normal)
[2024-06-18 18:08] LABS: Urine Bilirubin Dipstick 1 mg/dL (Negative)
[2024-06-18 18:11] LABS: Mucous, Urine 1+ /hpf (<or=2+); Red Blood Cells-Urine > 100 SEEN /hpf (0-5)
[2024-06-18 18:12] LABS: Bacteria 1+ /hpf (None Seen); White Blood Cells 0-5 SEEN /hpf (0-5)
[2024-06-18 19:00] VITALS: PULSE 87; RESP 17; O2SAT 98
[2024-06-18 19:22] VITALS: PULSE 87; RESP 18; TEMP 36.7; O2SAT 97
== END 2024-06-18 19:23 | disposition home or self-care (01) ==
PROVIDERS: Emergency Provider Emergency Medicine; Visit Provider Emergency Medicine
DX: A08.4 Viral intestinal infection, unspecified (principal)
CPT/HCPCS: 80053; 81001; 84703; 85025; 87631; 96361; 96374; 96375; 99283; A4216; J2405

== ENCOUNTER 2024-10-06 13:50 | Emergency (ER) | payer OTHER, SELFPAY ==
[2024-10-06 13:51] VITALS: BP 111/60; PULSE 99; RESP 24; TEMP 36.1; O2SAT 97; BMI 25.9
--- NOTE | 2024-10-06 14:44 | EDS_ITS ---
HPI HPI - GI History of Present Illness Chief Complaint: Abd Pain Informant: patient and spouse/S.O. Narrative Narrative: Here with the mother evaluation waxing waning abdominal pain generalized for last 3 days. Feels nauseated however no vomiting no diarrhea normal bowel movement daily. No urinary symptoms. Last menstrual period was from the seventh to the 12th. She states she has been having frequent recurrent symptoms similar with pain. Previous had viral symptoms with it. She did report sore throat that started Friday that is mildly still there but improving. No abdominal surgeries. No fevers. Denies alcohol or illicit drug use. No allergies. She states seen in ED on her last visit unclear what was done for her. She states it was attribute it to a viral syndrome. Prior similar symptoms: Yes PFSH PFSH Medical History (spontaneous vaginal delivery) Anxiety History of depression Encounter for elective induction of labor 39 weeks gestation of Laceration, obstetrical, first degree Home Medications ?Medication ?Instructions ?Recorded ?Last Taken ?Type prenat.vits,chitra,dzq-vqko-kxdnt 1 tab PO DAILY pregnanc y 09/13/20 09/15/20 History ondansetron 4 mg disintegrating 4 mg PO Q8H PRN PRN Na usea #10 tabs 06/18/24 Unknown Rx tablet amoxicillin 500 mg tablet 1,000 mg (2 x 500 mg) PO KIMO LY #18 10/06/24 Unknown Rx tabs famotidine 20 mg tablet 20 mg PO BID #28 TABLETS Unknown Rx ondansetron 4 mg disintegrating 4 mg PO Q8H PRN PRN Na usea #10 tabs 10/06/24 Unknown Rx tablet Allergy/AdvReac Type Severity Reaction Status Date / Time No Known Allergies Allergy Verified 10/06/24 13:51 Social History Smoking Status: Never smoker ROS ROS ED Constitutional Constitutional ED: Denies chills, fever(s) or sweats ENT ENT ED: Reports sore throat Cardiovascular Cardiovascular: Denies chest pain, leg edema, palpitations or racing heartbeat Respiratory/Chest Respiratory/Chest: Denies cough, dyspnea or dyspnea on exertion Gastrointestinal Gastrointestinal: Reports abdominal pain; Denies diarrhea, nausea or vomiting Genitourinary Genitourinary ED: Denies dysuria, hematuria or urinary frequency Musculoskeletal Musculoskeletal: Denies back pain, extremity pain or neck pain Integumentary Denies rash or wounds Neurologic Neurologic: Denies headache(s), paresthesias or weakness EXAM Physical Exam Const Vital Signs: 10/06/24 13:51 10/06/24 15:50 10/06/24 17:00 Temperature 97 F L Temperature Source Temporal Pulse Rate 99 71 73 Respiratory Rate 24 H 16 18 Blood Pressure 111/60 110/65 Blood Pressure Mean 77 80 Pulse Ox 97 99 100 Oxygen Delivery Method Room Air Room Air Positive well nourished and well developed General Appearance ED: well developed and NAD HEENT Reports moist mucous membranes HEENT Narrative: 2+ symmetric tonsils bilaterally there is erythema bilaterally there is exudates on the right tonsil uvula is midline no trismus. normocephalic and atraumatic Eyes General Eye ED: Yes normal appearance of both eyes Neck full ROM Chest Wall Chest: Negative for tenderness Resp normal respiratory effort and normal air movement Effort and Inspection: symmetric chest movement; Negative for respiratory distress Cardio regular rate, regular rhythm and no murmurs Peripheral Pulses: pulses 2+ throughout GI normal to inspection, nondistended, normoactive bowel sounds and non-tender GI Narrative: Negative Eid's or McBurney's tenderness. No guarding or rebound. Palpation: Negative for guarding or rebound tenderness present Extremity normal to inspection General Extremety ED: Negative for edema or tenderness General Extremity: Negative for edema Neuro oriented x3 and no sensory deficits noted Sensorium / Orientation: awake and alert Skin no rashes or lesions noted and no wounds MDM MDM MDM Narrative Medical decision making narrative: Interventions / MDM: Differential diagnosis: Strep pharyngitis, gastritis Diagnosis considered but do not suspect: No clinical cholecystitis or appendicitis. Pancreatitis however labs normal. No clinical peritonsillar abscess. My EKG interpretation: N/A Imaging independently reviewed and interpreted by myself: N/A External documents reviewed: June 18, 2024 evaluation ED for vomiting and diarrhea with abdominal discomfort. Diagnosed with viral gastroenteritis at that time. Test considered but not ordered:N/A ED course: Patient generalized abdominal pain after sore throat. She is nonsurgical abdomen. There is erythema and exudates on the tonsil. Will send for strep. Will check abdominal labs. IV fluids Zofran and Bentyl ordered. Will reevaluate. Strep positive. Labs white count 13.4 normal lipase and liver enzymes. Toxicology screen negative. Clinically was feeling better taking ice chips. Discussed treatment options with strep which can potentially lead to her abdominal symptoms. Would like pills, amoxicillin was started. She is also given Pepcid. Prescription sent to her pharmacy. Outpatient follow-up given. All questions were answered. Re-evaluation: stable Disposition discussed with patient/family/significant other: Patient and significant other Case discussed with consulting clinician: N/A This note was generated with [employer] dictation software. It may contain incorrect words, spelling, and punctuation that were not noted in checking the note before signing. Lab Data Attestation: I reviewed the patient's lab results. Labs: Laboratory Results - last 24 hr 10/06/24 10/06/24 15:03 16:34 WBC 13.4 H RBC 4.56 Hgb 12.4 Hct 38.1 MCV 83.6 MCH 27.2 MCHC 32.5 RDW Std Deviation 43.3 RDW Coeff of Lisseth 14.2 Plt Count 227 MPV 12.1 H Immature Gran % (Auto) 0.600 Neut % (Auto) 83.3 H Lymph % (Auto) 9.2 L Menard % (Auto) 5.1 Eos % (Auto) 1.4 Baso % (Auto) 0.4 Absolute Neuts (auto) 11.2 H Absolute Lymphs (auto) 1.24 Nucleated RBC % 0 Sodium 139 Potassium 3.5 Chloride 106 Carbon Dioxide 22.3 Anion Gap 11 BUN 7 Creatinine 0.82 Estim Creat Clear Calc 98.77 Est GFR (MDRD) Non-Af 102 BUN/Creatinine Ratio 8.2 L Glucose 109 H Calcium 9.0 Total Bilirubin 0.46 AST 21 ALT 14 Alkaline Phosphatase 56 Total Protein 7.5 Albumin 3.6 Globulin 3.9 Albumin/Globulin Ratio 0.9 Lipase 17 Urine Test Negative Urine Opiates Screen NEGATIVE U Buprenorphine Qual NEGATIVE Ur Oxycodone Screen NEGATIVE Urine Methadone Screen NEGATIVE Urine Fentanyl Screen NEGATIVE Ur Barbiturates Screen NEGATIVE Ur Phencyclidine Scrn NEGATIVE Ur Amphetamines Screen NEGATIVE U Benzodiazepines Scrn NEGATIVE Urine Cocaine Screen NEGATIVE U Cannabinoids Screen NEGATIVE Discharge Plan Triage Chief Complaint: Abd Pain ED Provider: Garland Thompson Dx/Rx/DC Orders Clinical Impression: Strep pharyngitis, Gastritis Instructions: Understanding Gastritis, ED Pharyngitis, Strep (Confirmed) Prescriptions: New amoxicillin 500 mg tablet 1,000 mg PO DAILY Qty: 18 0RF famotidine 20 mg tablet 20 mg PO BID Qty: 28 0RF ondansetron 4 mg tablet,disintegrating 4 mg PO Q8H PRN PRN (Reason: Nausea) Qty: 10 0RF No Action prenat.vits,chitra,dvd-jspk-qwhwd Tablet 1 tab PO DAILY ondansetron 4 mg tablet,disintegrating 4 mg PO Q8H PRN PRN (Reason: Nausea) Qty: 10 0RF Stand Alone Forms: ED Work / School Excuse Primary Care Provider: Care Physician,No Primary Referrals: Moody Cheng MD [Med Staff - Active Staff] - 1 Week Care Physician,No Primary [Primary Care Provider] - Activity Restrictions/Additional Instructions: Strep positive. Abdominal labs normal. White count 13 likely from strep. Finish antibiotics as prescribed. Use Tylenol as needed. Continue oral fluids for hydration. Use Zofran as needed. Take Pepcid to help with stomach symptoms. Print Language: Croatian Disposition Disposition: Home, Self Care Discharge Date/Time: 10/06/24 17:55
[2024-10-06] MEDS: Ondansetron 4 MG/2 ML Vial IV (14:58)
[2024-10-06] MEDS: 0.9% Normal Saline (500mL Bag) 500 ML 999 ML IV (14:58)
[2024-10-06] MEDS: Dicyclomine 10 MG Capsule 20 MG PO (14:59)
[2024-10-06 15:41] LABS: ALB/GLOB Ratio 0.9 RATIO (0.9-2.4); AST(SGOT) 21 U/L (<=31); Alanine Aminotransfer ALT/SGPT 14 U/L (<=34); Albumin, Serum 3.6 g/dL (3.5-5.0); Alkaline Phosphatase 56 U/L (35-104); Anion Gap 11 (5-15); BUN 7 mg/dL (4-19); BUN/Creat Ratio 8.2 RATIO (10-20); Carbon Dioxide 22.3 mmol/L (21.0-32.0); Chloride 106 mmol/L (98-108); Creatinine, Serum 0.82 mg/dL (0.70-1.20); EST Glomerular Filtration Rate 102 (>60); Estimated Creatinine Clearance 98.77 ml/min (50-250); Globulin 3.9 g/dL (2.2-4.2); Glucose 109 mg/dL (70-99); Lipase 17 U/L (13-75); Potassium 3.5 mmol/L (3.3-5.1); Protein, Total 7.5 g/dL (5.9-8.4); Sodium Level 139 mmol/L (133-145); Total Bilirubin 0.46 mg/dL (0.00-1.30)
[2024-10-06 15:44] LABS: Absolute Lymphocyte Count 1.24 X10^3/uL (0.83-4.51); Absolute Neutrophil Count 11.2 X10^3/uL (2.0-7.7); Basophil# 0.05 X10^3/uL; Basophil% 0.4 % (0-1); Eosinophil# 0.19 X10^3/uL; Eosinophils% 1.4 % (0-5); Hematocrit 38.1 % (37-47); Hemoglobin 12.4 g/dL (12.0-15.0); Lymphocyte # 1.24 X10^3/ul (0.83-4.51); Lymphocyte % 9.2 % (19-41); Mean Corp Hgb Conc 32.5 g/dL (32-36); Mean Corpuscular Hgb 27.2 pg (27.0-32.0); Mean Corpuscular Volume 83.6 fL (81-99); Mean Platelet Vol. 12.1 fl (6.2-12.0); Monocyte# 0.68 X10^3/uL; Monocyte% 5.1 % (0-10); NRBC Flagged by Analyzer 0 % (0-5); Neutrophil % 83.3 % (47-70); Platelet Count 227 K/mm3 (150-450); RBC Distribution Width CV 14.2 % (11.6-14.6); RBC Distribution Width SD 43.3 fl (35.1-43.9); Red Blood Count 4.56 M/mm3 (4.2-5.4); White Blood Count 13.4 K/mm3 (4.4-11.0)
[2024-10-06 15:50] VITALS: BP 110/65; PULSE 71; RESP 16; O2SAT 99
[2024-10-06 16:54] LABS: Amphetamine Urine NEGATIVE (<1000 ng/mL); Barbiturate Urine NEGATIVE (< 200 ng/mL); Benzodiazepine Urine NEGATIVE (< 200 ng/mL); Buprenorphine Urine NEGATIVE (< 200 ng/mL); Cocaine Urine NEGATIVE (< 300 ng/mL); Fentanyl, Urine NEGATIVE; Methadone Urine NEGATIVE (< 300 ng/mL); Opiates Urine NEGATIVE (< 300 ng/mL); Oxycodone, Urine NEGATIVE (< 100 ng/mL); PCP Urine NEGATIVE (< 25 ng/mL); THC Urine NEGATIVE (< 50 ng/mL)
[2024-10-06 17:00] VITALS: PULSE 73; RESP 18; O2SAT 100
[2024-10-06 17:01] LABS: Internal QC Validated? YES +Cl - CLEAR BKGD
[2024-10-06 17:02] LABS: Pregnancy, Urine Negative Negative; Record Kit Lot#,Urine Preg 947241
[2024-10-06] MEDS: Famotidine 20 MG Tablet PO (17:51)
[2024-10-06] MEDS: AMOXICILLIN 500 MG CAPSULE 1000 MG PO (17:51)
== END 2024-10-06 17:55 | disposition home or self-care (01) ==
PROVIDERS: Emergency Provider Emergency Medicine; Visit Provider Emergency Medicine
DX: J02.0 Streptococcal pharyngitis (principal); K29.70 Gastritis, unspecified, without bleeding
CPT/HCPCS: 80053; 80307; 81025; 83690; 85025; 87651; 96374; 99283; A4216; J2405

== ENCOUNTER 2025-01-24 09:21 | Emergency (ER) | payer OTHER, SELFPAY ==
[2025-01-24 09:22] VITALS: BP 119/70; PULSE 77; RESP 14; TEMP 36.1; O2SAT 98; BMI 26.8
--- NOTE | 2025-01-24 09:48 | ED.VIS.LOWEX ---
HPI History of Present Illness Chief Complaint: Lower Extremity Injury Narrative Narrative: 24-year-old female with no significant past medical history presents with left foot pain from an injury as he sustained yesterday evening. She stated that she was at the park, running after her child when she stepped in a dip in the ground. She not fall or hit her head, no loss of consciousness. She has been walking gingerly and is unable to bear full weight on her left foot secondary to pain all over her foot. She denies any ankle or knee pain. She took Excedrin at 3:00 in the morning. She presents with in denies other injuries. Ability to bear full weight on left foot secondary to pain mainly on the lateral aspect, and all of her across the top of her foot. [facility] Medical History (spontaneous vaginal delivery) Anxiety History of depression Encounter for elective induction of labor 39 weeks gestation of Laceration, obstetrical, first degree Home Medications ?Medication ?Instructions ?Recorded ?Last Taken ?Type famotidine 20 mg tablet 20 mg PO BID #28 TABLETS 10/06/24 Unknown Rx Allergy/AdvReac Type Severity Reaction Status Date / Time No Known Allergies Allergy Verified 01/24/25 09:25 Social History Smoking Status: Never smoker ROS ROS ED ROS Narrative Review of systems positive for left foot pain, inability to bear full weight. Worse with movement, walking and standing. Denies other injury. EXAM Physical Exam Narrative Exam Narrative: Afebrile. Vital signs noted. GCS 15. ABCs intact. Focused examination of the left foot reveals palpable dorsalis pedis pulse. No obvious deformity. No malleoli or tenderness bilaterally. Diffuse tenderness to palpation concentrated on the base of the fifth metatarsal. Good capillary refill distally. No palpable Achilles tendon deficit. No proximal fibular head tenderness. Const Vital Signs: 01/24/25 09:22 Temperature 96.9 F L Temperature Source Temporal Pulse Rate 77 Respiratory Rate 14 Blood Pressure 119/70 Blood Pressure Mean 86 Pulse Ox 98 Oxygen Delivery Method Room Air MDM MDM MDM Narrative Medical decision making narrative: The differential diagnosis includes but not limited to foot sprain versus contusion versus fracture. I have low concern for any ankle pathology as she is not having any tenderness there. X-rays were obtained of the left foot and 3 views and interpreted by myself independently. On my independent interpretation, there is no evidence of acute fracture. I reviewed the radiology report which confirms my independent interpretation. At this point in time, she will take [id number] analgesics as needed and continue ice and elevation of her left foot. She was placed in an Davey wrap and given a postoperative shoe for standing and walking. She was also referred to podiatry on-call to follow-up in 1 week if not improving. I discussed with her the use of crutches, but she declined and prefers not to have them. I do feel she can be weightbearing as tolerated. Disposition is discharged home in stable condition. History & Record Review Discussion w/independent historian: Patient Additional record(s) reviewed:: Prior ED visit (Noncontributory to current chief complaint) Radiography Diagnostic Testing: Clinical Impression(s) from Imaging Studies Foot X-Ray 01/24/25 09:52 IMPRESSION: No acute abnormality Reading Location: [id number] Discharge Plan Triage Chief Complaint: Lower Extremity Injury ED Provider: Tim Sousa Dx/Rx/DC Orders Clinical Impression: Sprain of foot, left, Contusion of left foot Instructions: ED Foot Sprain Prescriptions: No Action famotidine 20 mg tablet 20 mg PO BID Qty: 28 0RF Primary Care Provider: Care Physician,No Primary Referrals: Bobbi Vázquez DPM [Med Staff - Active Staff] - 1 Week if not improving Care Physician,No Primary [Primary Care Provider] - Activity Restrictions/Additional Instructions: [id number] medications like Tylenol or ibuprofen as needed for pain. Follow-up with podiatry in 1 week if not improving. Weightbearing as tolerated. Wear your postoperative shoe for standing or walking. Print Language: Malay Disposition Disposition: Home, Self Care
--- NOTE | 2025-01-24 09:52 | RAD_ITS ---
PROCEDURE: FOOT MIN 3 VIEWS 01/24/2025 REASON FOR EXAM: TRAUMA TECHNIQUE: Procedure Code: RADFO Modality: DX Procedure: FOOT MIN 3 VIEWS Laterality: None left COMPARISON: None FINDINGS: Bones: No fracture Joints: Minimal spurring of the dorsal navicular at the level of the talonavicular joint. Soft tissues: Soft tissues are unremarkable. Other: No foreign body RAD/Foot min 3 Views IMPRESSION: No acute abnormality Reading Location: [id number]
[2025-01-24 10:41] VITALS: BP 116/66; PULSE 56; RESP 16; TEMP 36.1; O2SAT 98
== END 2025-01-24 10:45 | disposition home or self-care (01) ==
PROVIDERS: Emergency Provider Emergency Medicine; Visit Provider Emergency Medicine
DX: S93.602A Unspecified sprain of left foot, initial encounter (principal); S90.32XA Contusion of left foot, initial encounter; W18.42XA Slipping, tripping and stumbling without falling due to stepping into hole or opening, initial encounter; Y92.830 Public park as the place of occurrence of the external cause; Y93.02 Activity, running; Y99.8 Other external cause status
CPT/HCPCS: 73630; 99283